=== PATIENT | female | born 1970 | race Caucasian/White ===

== ENCOUNTER 2017-10-20 21:35 | Inpatient (IN) | payer BC ==
[~2017-10-20] VITALS: Ht 162.6 cm; Wt 129.3 kg
[2017-10-20 22:14] LABS: BASOPHILS % (AUTO) 0.2 % (0-1); EOSINOPHILS % (AUTO) 0.3 % (0-6); HEMATOCRIT 39.8 % (35.0-45.0); HEMOGLOBIN 13.3 g/dl (12.0-16.0); LYMPHOCYTES # (AUTO) 0.8 X10'3 (1.1-4.8); LYMPHOCYTES % (AUTO) 12.8 % (21-51); MEAN CORPUSCULAR HEMOGLOBIN 26.5 PG (27.0-31.0); MEAN CORPUSCULAR HGB CONC 33.5 % (33.0-36.5); MEAN CORPUSCULAR VOLUME 79.2 FL (78-98); MONOCYTES # (AUTO) 0.1 X10'3 (0-0.9); MONOCYTES % (AUTO) 0.8 % (2-12); NEUTROPHILS # (AUTO) 5.2 X10'3 (1.8-7.7); NEUTROPHILS % (AUTO) 85.9 % (42-75); PLATELET COUNT 481 X10'3 (140-440); RED BLOOD COUNT 5.03 X10'6 (4.20-5.60); RED CELL DISTRIBUTION WIDTH 16.5 % (11.5-14.5); WHITE BLOOD COUNT 6.1 X10'3 (4.5-11.0)
[2017-10-20 22:25] LABS: INR 1.2 INR; PROTHROMBIN TIME 12.4 SECONDS (9.0-12.0)
[2017-10-20 22:29] LABS: ALANINE AMINOTRANSFERASE 21 U/L (12-78); ALBUMIN 2.8 G/DL (3.4-5.0); ALBUMIN/GLOBULIN RATIO 0.6 (1.1-1.5); ALKALINE PHOSPHATASE 112 IU/L (46-116); ANION GAP 17 (8-16); ASPARTATE AMINO TRANSFERASE 13 U/L (10-37); BILIRUBIN,TOTAL 0.6 MG/DL (0.1-1.0); BLOOD UREA NITROGEN 12 MG/DL (7-18); BUN/CREATININE RATIO 7.9 (6.6-38.0); CALCIUM 9.7 MG/DL (8.5-10.1); CHLORIDE 99 MMOL/L (99-107); CREATININE 1.52 MG/DL (0.40-0.90); GLUCOSE 146 MG/DL (70-104); POTASSIUM 3.4 MMOL/L (3.5-5.1); SODIUM 138 MMOL/L (135-145); TOTAL CARBON DIOXIDE 21.8 MMOL/L (24-32); TOTAL PROTEIN 7.7 G/DL (6.4-8.2); eGFR 37 ML/MIN
[2017-10-20 22:32] LABS: TOTAL CELLS COUNTED 100
[2017-10-20 22:34] LABS: PLATELET ESTIMATE INCREASED
[2017-10-20 22:35] LABS: ANISOCYTOSIS 1+
[2017-10-20] MEDS ORDERED: morphine 4 MG/ML inj SYRINge IV ONE (22:35)
[2017-10-20] MEDS ORDERED: normal saline 1000ML IV soln IVB ONE (22:35)
[2017-10-20] MEDS ORDERED: ondansetron/PF 4mg/2ml inj IV ONE (22:35)
[2017-10-20] MEDS ORDERED: LORazepam 2 mg/ml vial IV ONE (22:35)
[2017-10-20 22:36] LABS: TOXIC GRANULATION 1+; TOXIC VACUOLATION 1+
[2017-10-20 22:48] LABS: LIPASE 168 U/L (73-393)
[2017-10-21] VITALS (18 sets, daily range): BP systolic 98–121; BP diastolic 48–82
[2017-10-21] MEDS ORDERED: normal saline 1000ML IV soln IVB ONE ×3 (01:45→05:55)
[2017-10-21] MEDS: diatr meglu/diatrizoate 30ml oral sol.-(3 dose) bottle PO SCH ×3 (02:10→03:39)
[2017-10-21] MEDS ORDERED: morphine 4 MG/ML inj SYRINge IV ONE (02:40)
[2017-10-21] MEDS ORDERED: iohexol 300mg/ml 100ml inj. ONE (02:47)
[2017-10-21] MEDS ORDERED: piperacillin/tazo 3.375gm/50ml 50 ML IV ONE ×2 (02:50→09:10)
[2017-10-21 04:45] LABS: CLARITY,URINE CLOUDY (Clear); COLOR,URINE YELLOW (Yellow); GLUCOSE, URINE NEGATIVE (Neg); KETONES,URINE 15 mg/dl (Neg); LEUKOCYTE ESTERASE ,URINE NEGATIVE (Neg); NITRITES, URINE NEGATIVE (Neg); OCCULT BLOOD,URINE TRACE-INTACT (Neg); PH,URINE 5.5 (4.8-8.0); PROTEIN,URINE >=300 mg/dl (Neg)
[2017-10-21 04:46] LABS: UA COLLECTION TYPE FOLEY CATH
[2017-10-21 04:55] LABS: WBC,URINE 0-4 /HPF (0-4)
[2017-10-21 04:56] LABS: BACTERIA,URINE 1+ /HPF (Neg); MUCUS STRANDS MANY /LPF (Neg); SQUAMOUS EPITHELIAL CELL,UR FEW /LPF (FEW)
[2017-10-21 04:57] LABS: AMORPHOUS URATES 3+
[2017-10-21] MEDS ORDERED: LEVO125T PO (05:58)
[2017-10-21] MEDS ORDERED: normal saline 1000ML IV soln IV ONE (06:20)
[2017-10-21 06:47] LABS: BASOPHILS % (AUTO) 0 % (0-1); EOSINOPHILS % (AUTO) 0 % (0-6); HEMATOCRIT 34.6 % (35.0-45.0); HEMOGLOBIN 11.6 g/dl (12.0-16.0); LYMPHOCYTES # (AUTO) 0.5 X10'3 (1.1-4.8); LYMPHOCYTES % (AUTO) 5.6 % (21-51); MEAN CORPUSCULAR HEMOGLOBIN 26.7 PG (27.0-31.0); MEAN CORPUSCULAR HGB CONC 33.4 % (33.0-36.5); MEAN PLATELET VOLUME 7.3 FL (7.4-10.4); MONOCYTES # (AUTO) 0.5 X10'3 (0-0.9); NEUTROPHILS # (AUTO) 7.2 X10'3 (1.8-7.7); NEUTROPHILS % (AUTO) 88.4 % (42-75); PLATELET COUNT 433 X10'3 (140-440); RED BLOOD COUNT 4.32 X10'6 (4.20-5.60); RED CELL DISTRIBUTION WIDTH 16.6 % (11.5-14.5); WHITE BLOOD COUNT 8.2 X10'3 (4.5-11.0)
[2017-10-21 07:01] LABS: ALANINE AMINOTRANSFERASE 15 U/L (12-78); ALBUMIN/GLOBULIN RATIO 0.5 (1.1-1.5); ALKALINE PHOSPHATASE 68 IU/L (46-116); ANION GAP 13 (8-16); ASPARTATE AMINO TRANSFERASE 12 U/L (10-37); BILIRUBIN,TOTAL 0.6 MG/DL (0.1-1.0); BLOOD UREA NITROGEN 14 MG/DL (7-18); BUN/CREATININE RATIO 9.7 (6.6-38.0); CALCIUM 7.6 MG/DL (8.5-10.1); CHLORIDE 107 MMOL/L (99-107); CREATININE 1.44 MG/DL (0.40-0.90); GLUCOSE 120 MG/DL (70-104); MAGNESIUM 1.3 MG/DL (1.5-2.4); POTASSIUM 3.6 MMOL/L (3.5-5.1); SODIUM 141 MMOL/L (135-145); TOTAL CARBON DIOXIDE 20.8 MMOL/L (24-32); TOTAL PROTEIN 5.8 G/DL (6.4-8.2); eGFR 39 ML/MIN
[2017-10-21] MEDS ORDERED: magnesium 2GM in 50ml NS 50 ML IV ONE (07:05)
[2017-10-21 07:08] LABS: ANISOCYTOSIS 1+; BANDS% (MANUAL) 34 % (0-10); LYMPHOCYTES % (MANUAL) 7 % (21-51); METAMYLEOCYTES% (MANUAL) 4 % (0-0); MONOCYTES % (MANUAL) 5 % (2-12); NEUTROPHILS % (MANUAL) 50 % (42-75); PLATELET ESTIMATE NORMAL; TOTAL CELLS COUNTED 100
[2017-10-21 07:09] LABS: TOXIC VACUOLATION 1+
[2017-10-21] MEDS ORDERED: gentamicin 40 MG/1 ML inj ONE ×2 (07:11→10:07)
[2017-10-21] MEDS ORDERED: clindamycin phosphate 150mg/ml inj. ONE ×2 (07:11→10:07)
[2017-10-21 07:40] LABS: ABG BASE EXCESS -8.2 mmol/L (-2.0-3.0); ABG HCO3 16.6 mmol/L (22.0-26.0); ABG OXYGEN SATURATION 96.3 % (95-98); ABG PCO2 (T) 34.4 mmHg (32.0-45.0); ABG PH (T) 7.309 (7.350-7.450); ABG PO2 (T) 101.1 mmHg (83-108); ALLEN'S TEST Positive; FCOHb 0.3 % (0.5-1.5); FLOW 4 L/min; FMetHb 0.2 % (0.3-1.12); FO2Hb 95.8 % (94-100); PATIENT TEMPERATURE 38.7; TOTAL HEMOGLOBIN 12.8 G/dl (12.0-16.0)
[2017-10-21] MEDS ORDERED: midazolam 2 mg/2 ml injection ONE (08:06)
[2017-10-21] MEDS ORDERED: propofol inj 20 ML IV ONE (08:07)
[2017-10-21] MEDS ORDERED: LIDOcaine 2% (20mg/ml) 5ml vial ONE (08:07)
[2017-10-21] MEDS ORDERED: rocuronium 10mg/ml inj IV ONE (08:07)
[2017-10-21] MEDS ORDERED: fentaNYL /PF 50mcg/ml 5ml ampule ONE (08:07)
[2017-10-21] MEDS ORDERED: sevoflurane 250ml liquid IH ONE (08:15)
[2017-10-21] MEDS ORDERED: ondansetron/PF 4mg/2ml inj ONE (09:25)
[2017-10-21] MEDS ORDERED: dexamethasone sod phosphate 4mg/ml inj. ONE ×2 (09:25→10:00)
[2017-10-21] MEDS ORDERED: ketorolac trometh. 30mg/ml inj. ONE (10:00)
[2017-10-21] MEDS ORDERED: BUPIVAcaine/PF 2.5 mg/ml (0.25%) 30ml vial ONE ×2 (10:00)
[2017-10-21] MEDS ORDERED: acetaminophen 1,000mg/100ml IV 100 ML IV ONE (10:03)
[2017-10-21] MEDS ORDERED: glycopyrrolate 0.2mg/ml inj ONE (10:44)
[2017-10-21] MEDS ORDERED: neostigmine methylsulfate 1 MG/ML 10ml vial ONE (10:44)
[2017-10-21] MEDS ORDERED: CADD PCA waste documentation MC PRN (10:55)
[2017-10-21] MEDS ORDERED: ondansetron/PF 4mg/2ml inj IV PRN ×2 (10:55→11:25)
[2017-10-21] MEDS ORDERED: naloxone 0.4 mg/ml inj IV PRN (10:55)
[2017-10-21] MEDS: HYDROmorphone/NS 1 mg/ml CADD 50 ML IV SCH ×8 (11:00→23:00)
[2017-10-21] MEDS ORDERED: fentaNYL/PF 50MCG/1 ML 2ML syringe ONE (11:04)
[2017-10-21] MEDS ORDERED: ringers solution, lacted 1,000 ML IV SCH (11:24)
[2017-10-21] MEDS ORDERED: fentaNYL/PF 50MCG/1 ML 2ML syringe IV PRN (11:25)
[2017-10-21] MEDS ORDERED: HYDROmorphone inj. 0.5 MG/0.5 ML DISP.SYRIN IV PRN (11:25)
[2017-10-21] MEDS ORDERED: proCHLORperazine 10 MG/2 ml inj IV PRN (11:25)
[2017-10-21] MEDS: piperacillin/tazo 3.375gm/50ml 50 ML IV SCH ×2 (17:21→20:28)
[2017-10-21] MEDS: potassium CL 20mEq in D5-1/2NS 1,000 ML IV SCH (17:21)
[2017-10-22] VITALS: BP 127/65
[2017-10-22] MEDS: HYDROmorphone/NS 1 mg/ml CADD 50 ML IV SCH ×12 (01:00→23:00)
[2017-10-22] MEDS: piperacillin/tazo 3.375gm/50ml 50 ML IV SCH ×4 (02:45→20:16)
[2017-10-22 05:34] LABS: BASOPHILS % (AUTO) 0 % (0-1); EOSINOPHILS % (AUTO) 0.1 % (0-6); HEMATOCRIT 34.2 % (35.0-45.0); HEMOGLOBIN 11.4 g/dl (12.0-16.0); LYMPHOCYTES # (AUTO) 0.7 X10'3 (1.1-4.8); LYMPHOCYTES % (AUTO) 3.5 % (21-51); MEAN CORPUSCULAR HGB CONC 33.3 % (33.0-36.5); MEAN CORPUSCULAR VOLUME 81.1 FL (78-98); MEAN PLATELET VOLUME 7.9 FL (7.4-10.4); MONOCYTES # (AUTO) 0.6 X10'3 (0-0.9); MONOCYTES % (AUTO) 3.1 % (2-12); NEUTROPHILS # (AUTO) 17.4 X10'3 (1.8-7.7); NEUTROPHILS % (AUTO) 93.3 % (42-75); PLATELET COUNT 453 X10'3 (140-440); RED BLOOD COUNT 4.22 X10'6 (4.20-5.60); RED CELL DISTRIBUTION WIDTH 17.2 % (11.5-14.5); WHITE BLOOD COUNT 18.6 X10'3 (4.5-11.0)
[2017-10-22 05:41] LABS: ALBUMIN 1.7 G/DL (3.4-5.0); ANION GAP 12 (8-16); BLOOD UREA NITROGEN 18 MG/DL (7-18); CALCIUM 8.1 MG/DL (8.5-10.1); CHLORIDE 107 MMOL/L (99-107); CREATININE 1.06 MG/DL (0.40-0.90); GLUCOSE 154 MG/DL (70-104); POTASSIUM 4.5 MMOL/L (3.5-5.1); SODIUM 140 MMOL/L (135-145); TOTAL CARBON DIOXIDE 21.4 MMOL/L (24-32); eGFR 56 ML/MIN
[2017-10-22] MEDS: potassium CL 20mEq in D5-1/2NS 1,000 ML IV SCH ×5 (05:46→22:54)
[2017-10-22 07:25] LABS: ANISOCYTOSIS 1+; BANDS% (MANUAL) 30 % (0-10); LYMPHOCYTES % (MANUAL) 2 % (21-51); MONOCYTES % (MANUAL) 5 % (2-12); NEUTROPHILS % (MANUAL) 63 % (42-75); PLATELET ESTIMATE INCREASED; TOTAL CELLS COUNTED 100
[2017-10-22 07:26] LABS: BURR CELLS FEW; ROULEAUX 1+; TOXIC VACUOLATION 1+
[2017-10-22 08:00] VITALS: BP 125/72
[2017-10-22 12:17] VITALS: BP 124/71
[2017-10-22 19:00] VITALS: BP 128/67
[2017-10-22] MEDS: lactobacillus rhamnosus 10,000 MMU CELLS/CAPSULE PO SCH (20:00)
[2017-10-22 23:43] VITALS: BP 130/78
[2017-10-23] MEDS: HYDROmorphone/NS 1 mg/ml CADD 50 ML IV SCH ×12 (01:00→23:00)
[2017-10-23] MEDS: piperacillin/tazo 3.375gm/50ml 50 ML IV SCH ×4 (01:30→21:25)
[2017-10-23 05:30] LABS: BASOPHILS % (AUTO) 0.1 % (0-1); EOSINOPHILS # (AUTO) 0.3 X10'3 (0-0.9); EOSINOPHILS % (AUTO) 1.2 % (0-6); HEMATOCRIT 30.8 % (35.0-45.0); HEMOGLOBIN 10.2 g/dl (12.0-16.0); LYMPHOCYTES # (AUTO) 1.2 X10'3 (1.1-4.8); LYMPHOCYTES % (AUTO) 5.4 % (21-51); MEAN CORPUSCULAR HEMOGLOBIN 26.5 PG (27.0-31.0); MEAN CORPUSCULAR VOLUME 80.1 FL (78-98); MEAN PLATELET VOLUME 7.8 FL (7.4-10.4); MONOCYTES % (AUTO) 4.5 % (2-12); NEUTROPHILS # (AUTO) 19.8 X10'3 (1.8-7.7); NEUTROPHILS % (AUTO) 88.8 % (42-75); PLATELET COUNT 481 X10'3 (140-440); RED BLOOD COUNT 3.84 X10'6 (4.20-5.60); RED CELL DISTRIBUTION WIDTH 17.4 % (11.5-14.5); WHITE BLOOD COUNT 22.3 X10'3 (4.5-11.0)
[2017-10-23 05:43] LABS: ALBUMIN 1.5 G/DL (3.4-5.0); ANION GAP 7 (8-16); BLOOD UREA NITROGEN 13 MG/DL (7-18); BUN/CREATININE RATIO 19.7 (6.6-38.0); CALCIUM 8.2 MG/DL (8.5-10.1); CHLORIDE 107 MMOL/L (99-107); CREATININE 0.66 MG/DL (0.40-0.90); GLUCOSE 144 MG/DL (70-104); POTASSIUM 4.4 MMOL/L (3.5-5.1); SODIUM 139 MMOL/L (135-145); TOTAL CARBON DIOXIDE 24.8 MMOL/L (24-32); eGFR > 90 ML/MIN
[2017-10-23 06:11] LABS: ANISOCYTOSIS 1+; MICROCYTOSIS 1+; PLATELET ESTIMATE INCREASED; TARGET CELLS FEW
[2017-10-23 06:12] LABS: POLYCHROMASIA FEW; SCHISTOCYTES FEW
[2017-10-23] MEDS: enoxaparin 40mg/0.4ml syringe SUBCUT SCH (07:57)
[2017-10-23] MEDS: lactobacillus rhamnosus 10,000 MMU CELLS/CAPSULE PO SCH ×2 (08:00→20:00)
[2017-10-23] MEDS: potassium CL 20mEq in D5-1/2NS 1,000 ML IV SCH ×2 (08:02→17:28)
[2017-10-23 08:11] VITALS: BP 135/83
[2017-10-23 11:30] VITALS: BP 148/88
[2017-10-23 19:00] VITALS: BP 144/90
[2017-10-23] MEDS ORDERED: Dextrose 10%-water IV solution 1,000 ML IV PRN (20:00)
[2017-10-23 22:54] LABS: ALANINE AMINOTRANSFERASE 27 U/L (12-78); ALBUMIN 1.5 G/DL (3.4-5.0); ALBUMIN/GLOBULIN RATIO 0.3 (1.1-1.5); ALKALINE PHOSPHATASE 69 IU/L (46-116); ANION GAP 8 (8-16); ASPARTATE AMINO TRANSFERASE 31 U/L (10-37); BILIRUBIN,TOTAL 0.2 MG/DL (0.1-1.0); BLOOD UREA NITROGEN 12 MG/DL (7-18); BUN/CREATININE RATIO 19.4 (6.6-38.0); CALCIUM 8.3 MG/DL (8.5-10.1); CHLORIDE 106 MMOL/L (99-107); CREATININE 0.62 MG/DL (0.40-0.90); GLUCOSE 115 MG/DL (70-104); PREALBUMIN 9.5 MG/DL (19-36); SODIUM 140 MMOL/L (135-145); TOTAL CARBON DIOXIDE 26.3 MMOL/L (24-32); TOTAL PROTEIN 5.8 G/DL (6.4-8.2); TRIGLYCERIDES 90 MG/DL (20-135); eGFR > 90 ML/MIN
[2017-10-23 23:00] VITALS: BP 134/78
[2017-10-23 23:03] LABS: PHOSPHORUS 1.2 MG/DL (2.3-4.5)
[2017-10-23] MEDS: fat emulsion IV 100 ML, MVI, adult No.4 with vit. K 5 ML, Trace element-5 inj. 0.5 ML i... IV SCH ×4 (23:27)
[2017-10-24] MEDS: HYDROmorphone/NS 1 mg/ml CADD 50 ML IV SCH ×12 (01:00→22:40)
[2017-10-24] MEDS: piperacillin/tazo 3.375gm/50ml 50 ML IV SCH ×4 (01:30→20:03)
[2017-10-24] MEDS: potassium CL 20mEq in D5-1/2NS 1,000 ML IV SCH ×2 (01:30→10:53)
[2017-10-24] MEDS ORDERED: sodium phosphate inj. 30 MMOL in dextrose 5%-water 240 ML IV ONE (06:25)
[2017-10-24] MEDS: lactobacillus rhamnosus 10,000 MMU CELLS/CAPSULE PO SCH ×2 (07:23→20:00)
[2017-10-24] MEDS: enoxaparin 40mg/0.4ml syringe SUBCUT SCH (07:29)
[2017-10-24 07:45] VITALS: BP 129/83
[2017-10-24 08:05] LABS: BASOPHILS # (AUTO) 0.1 X10'3 (0-0.2); BASOPHILS % (AUTO) 0.3 % (0-1); EOSINOPHILS # (AUTO) 0.2 X10'3 (0-0.9); EOSINOPHILS % (AUTO) 1.3 % (0-6); HEMATOCRIT 29.3 % (35.0-45.0); HEMOGLOBIN 9.9 g/dl (12.0-16.0); LYMPHOCYTES # (AUTO) 1.8 X10'3 (1.1-4.8); LYMPHOCYTES % (AUTO) 9.6 % (21-51); MEAN CORPUSCULAR HEMOGLOBIN 26.7 PG (27.0-31.0); MEAN CORPUSCULAR HGB CONC 33.6 % (33.0-36.5); MEAN CORPUSCULAR VOLUME 79.4 FL (78-98); MEAN PLATELET VOLUME 7.9 FL (7.4-10.4); MONOCYTES # (AUTO) 0.3 X10'3 (0-0.9); MONOCYTES % (AUTO) 1.7 % (2-12); NEUTROPHILS # (AUTO) 16.7 X10'3 (1.8-7.7); NEUTROPHILS % (AUTO) 87.1 % (42-75); PLATELET COUNT 476 X10'3 (140-440); RED BLOOD COUNT 3.69 X10'6 (4.20-5.60); RED CELL DISTRIBUTION WIDTH 15.8 % (11.5-14.5); WHITE BLOOD COUNT 19.1 X10'3 (4.5-11.0)
[2017-10-24 08:23] LABS: ALANINE AMINOTRANSFERASE 24 U/L (12-78); ALBUMIN 1.4 G/DL (3.4-5.0); ALBUMIN/GLOBULIN RATIO 0.3 (1.1-1.5); ALKALINE PHOSPHATASE 64 IU/L (46-116); ANION GAP 7 (8-16); ASPARTATE AMINO TRANSFERASE 27 U/L (10-37); BILIRUBIN,TOTAL 0.2 MG/DL (0.1-1.0); BLOOD UREA NITROGEN 11 MG/DL (7-18); BUN/CREATININE RATIO 18.3 (6.6-38.0); CALCIUM 8.1 MG/DL (8.5-10.1); CHLORIDE 106 MMOL/L (99-107); GLUCOSE 124 MG/DL (70-104); MAGNESIUM 1.8 MG/DL (1.5-2.4); POTASSIUM 3.9 MMOL/L (3.5-5.1); SODIUM 139 MMOL/L (135-145); TOTAL CARBON DIOXIDE 26.4 MMOL/L (24-32); TOTAL PROTEIN 5.7 G/DL (6.4-8.2); eGFR > 90 ML/MIN
[2017-10-24 08:28] LABS: PHOSPHORUS 1.2 MG/DL (2.3-4.5); TOTAL CELLS COUNTED 100
[2017-10-24 08:29] LABS: ANISOCYTOSIS 1+; HYPOCHROMASIA 1+; MICROCYTOSIS 1+; PLATELET ESTIMATE INCREASED; POLYCHROMASIA 1+; TOXIC GRANULATION 2+
[2017-10-24] MEDS: pantoprazole 40 MG vial IV SCH ×2 (10:53→20:05)
[2017-10-24 12:52] VITALS: BP 148/77
[2017-10-24] MEDS: fat emulsion IV 100 ML, MVI, adult No.4 with vit. K 5 ML, Trace element-5 inj. 0.5 ML i... IV SCH ×4 (17:57)
[2017-10-24 20:00] VITALS: BP 164/92
[2017-10-24 23:30] VITALS: BP 164/92
[2017-10-25] MEDS: HYDROmorphone/NS 1 mg/ml CADD 50 ML IV SCH ×12 (01:00→23:00)
[2017-10-25] MEDS: piperacillin/tazo 3.375gm/50ml 50 ML IV SCH ×4 (01:48→21:35)
[2017-10-25] MEDS: fat emulsion IV 100 ML, MVI, adult No.4 with vit. K 5 ML, Trace element-5 inj. 0.5 ML i... IV SCH ×12 (04:08→23:43)
[2017-10-25 06:47] LABS: BASOPHILS % (AUTO) 0.2 % (0-1); EOSINOPHILS # (AUTO) 0.4 X10'3 (0-0.9); EOSINOPHILS % (AUTO) 1.9 % (0-6); HEMATOCRIT 31.9 % (35.0-45.0); HEMOGLOBIN 10.4 g/dl (12.0-16.0); LYMPHOCYTES % (AUTO) 9.2 % (21-51); MEAN CORPUSCULAR HEMOGLOBIN 26.4 PG (27.0-31.0); MEAN CORPUSCULAR HGB CONC 32.7 % (33.0-36.5); MEAN CORPUSCULAR VOLUME 80.6 FL (78-98); MEAN PLATELET VOLUME 7.5 FL (7.4-10.4); MONOCYTES # (AUTO) 1.2 X10'3 (0-0.9); MONOCYTES % (AUTO) 5.3 % (2-12); NEUTROPHILS # (AUTO) 18.3 X10'3 (1.8-7.7); NEUTROPHILS % (AUTO) 83.4 % (42-75); PLATELET COUNT 570 X10'3 (140-440); RED BLOOD COUNT 3.96 X10'6 (4.20-5.60); RED CELL DISTRIBUTION WIDTH 16.7 % (11.5-14.5); WHITE BLOOD COUNT 21.9 X10'3 (4.5-11.0)
[2017-10-25 07:13] VITALS: BP 149/81
[2017-10-25 07:13] LABS: ANISOCYTOSIS 1+; PLATELET ESTIMATE INCREASED; TOTAL CELLS COUNTED 100
[2017-10-25 07:14] LABS: MICROCYTOSIS 1+; TOXIC GRANULATION 1+
[2017-10-25 07:45] LABS: ALANINE AMINOTRANSFERASE 23 U/L (12-78); ALBUMIN 1.5 G/DL (3.4-5.0); ALBUMIN/GLOBULIN RATIO 0.3 (1.1-1.5); ALKALINE PHOSPHATASE 66 IU/L (46-116); ANION GAP 8 (8-16); ASPARTATE AMINO TRANSFERASE 23 U/L (10-37); BILIRUBIN,TOTAL 0.2 MG/DL (0.1-1.0); BLOOD UREA NITROGEN 12 MG/DL (7-18); BUN/CREATININE RATIO 17.6 (6.6-38.0); CALCIUM 8.3 MG/DL (8.5-10.1); CHLORIDE 103 MMOL/L (99-107); CREATININE 0.68 MG/DL (0.40-0.90); GLUCOSE 122 MG/DL (70-104); MAGNESIUM 1.6 MG/DL (1.5-2.4); PHOSPHORUS 1.9 MG/DL (2.3-4.5); POTASSIUM 3.4 MMOL/L (3.5-5.1); SODIUM 138 MMOL/L (135-145); TOTAL CARBON DIOXIDE 26.6 MMOL/L (24-32); TOTAL PROTEIN 5.9 G/DL (6.4-8.2); eGFR > 90 ML/MIN
[2017-10-25] MEDS: lactobacillus rhamnosus 10,000 MMU CELLS/CAPSULE PO SCH ×2 (08:00→20:00)
[2017-10-25] MEDS: potassium CL 20mEq in D5-1/2NS 1,000 ML IV SCH (08:01)
[2017-10-25] MEDS: pantoprazole 40 MG vial IV SCH ×2 (08:58→21:34)
[2017-10-25] MEDS: enoxaparin 40mg/0.4ml syringe SUBCUT SCH (08:59)
[2017-10-25 11:46] VITALS: BP 155/85
[2017-10-25] MEDS ORDERED: [UNRECOGNIZED DRUG - OTHER] IV ONE ×2 (15:35)
[2017-10-25] MEDS: normal saline 500ml IV soln 500 ML IV SCH (16:18)
[2017-10-25 18:45] VITALS: BP 142/80
[2017-10-26] VITALS: BP 130/62
[2017-10-26] MEDS: HYDROmorphone/NS 1 mg/ml CADD 50 ML IV SCH ×12 (01:00→22:40)
[2017-10-26] MEDS: piperacillin/tazo 3.375gm/50ml 50 ML IV SCH ×4 (02:22→20:08)
[2017-10-26 05:51] LABS: BASOPHILS % (AUTO) 0 % (0-1); EOSINOPHILS # (AUTO) 0.8 X10'3 (0-0.9); EOSINOPHILS % (AUTO) 2.9 % (0-6); HEMATOCRIT 32.4 % (35.0-45.0); HEMOGLOBIN 10.8 g/dl (12.0-16.0); LYMPHOCYTES % (AUTO) 7.6 % (21-51); MEAN CORPUSCULAR HEMOGLOBIN 26.6 PG (27.0-31.0); MEAN CORPUSCULAR HGB CONC 33.3 % (33.0-36.5); MEAN PLATELET VOLUME 7.6 FL (7.4-10.4); MONOCYTES # (AUTO) 1.4 X10'3 (0-0.9); MONOCYTES % (AUTO) 5.2 % (2-12); NEUTROPHILS # (AUTO) 22.2 X10'3 (1.8-7.7); NEUTROPHILS % (AUTO) 84.3 % (42-75); PLATELET COUNT 585 X10'3 (140-440); RED BLOOD COUNT 4.05 X10'6 (4.20-5.60); RED CELL DISTRIBUTION WIDTH 17.4 % (11.5-14.5)
[2017-10-26 06:08] LABS: WHITE BLOOD COUNT 26.3 X10'3 (4.5-11.0)
[2017-10-26 06:19] LABS: ALANINE AMINOTRANSFERASE 18 U/L (12-78); ALBUMIN 1.4 G/DL (3.4-5.0); ALBUMIN/GLOBULIN RATIO 0.3 (1.1-1.5); ALKALINE PHOSPHATASE 71 IU/L (46-116); ANION GAP 11 (8-16); ASPARTATE AMINO TRANSFERASE 20 U/L (10-37); BILIRUBIN,TOTAL 0.2 MG/DL (0.1-1.0); BLOOD UREA NITROGEN 17 MG/DL (7-18); BUN/CREATININE RATIO 25.8 (6.6-38.0); CALCIUM 8.2 MG/DL (8.5-10.1); CHLORIDE 99 MMOL/L (99-107); CREATININE 0.66 MG/DL (0.40-0.90); GLUCOSE 103 MG/DL (70-104); MAGNESIUM 1.8 MG/DL (1.5-2.4); POTASSIUM 3.8 MMOL/L (3.5-5.1); PREALBUMIN 11.2 MG/DL (19-36); SODIUM 136 MMOL/L (135-145); TOTAL PROTEIN 6.1 G/DL (6.4-8.2); TRIGLYCERIDES 87 MG/DL (20-135); eGFR > 90 ML/MIN
[2017-10-26 07:39] LABS: BANDS% (MANUAL) 2 % (0-10); NEUTROPHILS % (MANUAL) 85 % (42-75); TOTAL CELLS COUNTED 100
[2017-10-26 07:40] LABS: ANISOCYTOSIS 1+; EOSINOPHILS % (MANUAL) 4 % (0-6); LYMPHOCYTES % (MANUAL) 6 % (21-51); METAMYLEOCYTES% (MANUAL) 1 % (0-0); MONOCYTES % (MANUAL) 2 % (2-12); PLATELET ESTIMATE INCREASED
[2017-10-26] MEDS: enoxaparin 40mg/0.4ml syringe SUBCUT SCH (08:00)
[2017-10-26] MEDS: lactobacillus rhamnosus 10,000 MMU CELLS/CAPSULE PO SCH ×2 (08:00→20:00)
[2017-10-26] MEDS: fat emulsion IV 100 ML, MVI, adult No.4 with vit. K 5 ML, Trace element-5 inj. 0.5 ML i... IV SCH ×8 (09:19→18:56)
[2017-10-26] MEDS: pantoprazole 40 MG vial IV SCH ×2 (09:20→20:11)
[2017-10-26] MEDS: methylnaltrexone br 12mg/0.6ml inj***SubQ only SQ SCH (09:20)
[2017-10-26 09:43] VITALS: BP 146/74
[2017-10-26] MEDS: diatr meglu/diatrizoate 30ml oral sol.-(3 dose) bottle PO SCH ×3 (09:59→14:38)
[2017-10-26 12:26] VITALS: BP 147/87
[2017-10-26] MEDS: linezolid 600mg/300ml PREMIX 300 ML IV SCH ×2 (13:21→21:05)
[2017-10-26] MEDS ORDERED: iohexol 300mg/ml 100ml inj. ONE (14:15)
[2017-10-26] MEDS: normal saline 500ml IV soln 500 ML IV SCH (17:03)
[2017-10-26 20:00] VITALS: BP 129/75
[2017-10-27] VITALS (12 sets, daily range): BP systolic 120–152; BP diastolic 66–92
[2017-10-27] MEDS: HYDROmorphone/NS 1 mg/ml CADD 50 ML IV SCH ×12 (01:00→23:00)
[2017-10-27] MEDS: piperacillin/tazo 3.375gm/50ml 50 ML IV SCH ×4 (01:58→20:51)
[2017-10-27] MEDS: fat emulsion IV 100 ML, MVI, adult No.4 with vit. K 5 ML, Trace element-5 inj. 0.5 ML i... IV SCH ×12 (03:55→23:20)
[2017-10-27 06:53] LABS: ALANINE AMINOTRANSFERASE 19 U/L (12-78); ALBUMIN 1.4 G/DL (3.4-5.0); ALBUMIN/GLOBULIN RATIO 0.3 (1.1-1.5); ALKALINE PHOSPHATASE 71 IU/L (46-116); ANION GAP 6 (8-16); ASPARTATE AMINO TRANSFERASE 18 U/L (10-37); BILIRUBIN,TOTAL 0.2 MG/DL (0.1-1.0); BLOOD UREA NITROGEN 16 MG/DL (7-18); BUN/CREATININE RATIO 25.4 (6.6-38.0); CALCIUM 8.2 MG/DL (8.5-10.1); CHLORIDE 100 MMOL/L (99-107); CREATININE 0.63 MG/DL (0.40-0.90); GLUCOSE 121 MG/DL (70-104); MAGNESIUM 1.9 MG/DL (1.5-2.4); PHOSPHORUS 3.4 MG/DL (2.3-4.5); POTASSIUM 3.7 MMOL/L (3.5-5.1); SODIUM 135 MMOL/L (135-145); TOTAL CARBON DIOXIDE 29.3 MMOL/L (24-32); TOTAL PROTEIN 6.2 G/DL (6.4-8.2); eGFR > 90 ML/MIN
[2017-10-27] MEDS: lactobacillus rhamnosus 10,000 MMU CELLS/CAPSULE PO SCH ×2 (08:37→20:00)
[2017-10-27] MEDS: pantoprazole 40 MG vial IV SCH ×2 (08:38→20:47)
[2017-10-27] MEDS: linezolid 600mg/300ml PREMIX 300 ML IV SCH ×2 (08:40→22:22)
[2017-10-27] MEDS ORDERED: LIDOcaine 1%/PF (10mg/ml) 5ml vial ONE (12:56)
[2017-10-27] MEDS: normal saline 500ml IV soln 500 ML IV SCH ×2 (17:32→21:08)
[2017-10-28] VITALS: BP 126/66
[2017-10-28] MEDS: HYDROmorphone/NS 1 mg/ml CADD 50 ML IV SCH ×8 (01:00→15:00)
[2017-10-28] MEDS: piperacillin/tazo 3.375gm/50ml 50 ML IV SCH ×3 (02:07→15:32)
[2017-10-28 06:52] LABS: BASOPHILS % (AUTO) 0 % (0-1); EOSINOPHILS # (AUTO) 0.7 X10'3 (0-0.9); EOSINOPHILS % (AUTO) 3.9 % (0-6); HEMOGLOBIN 10.1 g/dl (12.0-16.0); LYMPHOCYTES # (AUTO) 1.3 X10'3 (1.1-4.8); MEAN CORPUSCULAR HEMOGLOBIN 26.8 PG (27.0-31.0); MEAN CORPUSCULAR HGB CONC 33.7 % (33.0-36.5); MEAN CORPUSCULAR VOLUME 79.7 FL (78-98); MEAN PLATELET VOLUME 7.6 FL (7.4-10.4); MONOCYTES # (AUTO) 1.4 X10'3 (0-0.9); MONOCYTES % (AUTO) 7.5 % (2-12); NEUTROPHILS # (AUTO) 15.5 X10'3 (1.8-7.7); NEUTROPHILS % (AUTO) 81.6 % (42-75); PLATELET COUNT 665 X10'3 (140-440); RED BLOOD COUNT 3.77 X10'6 (4.20-5.60)
[2017-10-28 07:07] VITALS: BP 123/70
[2017-10-28 07:09] LABS: ALANINE AMINOTRANSFERASE 15 U/L (12-78); ALBUMIN 1.3 G/DL (3.4-5.0); ALBUMIN/GLOBULIN RATIO 0.3 (1.1-1.5); ALKALINE PHOSPHATASE 74 IU/L (46-116); ANION GAP 7 (8-16); ASPARTATE AMINO TRANSFERASE 15 U/L (10-37); BILIRUBIN,TOTAL 0.2 MG/DL (0.1-1.0); BLOOD UREA NITROGEN 16 MG/DL (7-18); BUN/CREATININE RATIO 25.8 (6.6-38.0); CALCIUM 8.1 MG/DL (8.5-10.1); CHLORIDE 100 MMOL/L (99-107); CREATININE 0.62 MG/DL (0.40-0.90); GLUCOSE 115 MG/DL (70-104); PHOSPHORUS 3.7 MG/DL (2.3-4.5); SODIUM 135 MMOL/L (135-145); TOTAL PROTEIN 6.3 G/DL (6.4-8.2); eGFR > 90 ML/MIN
[2017-10-28 07:39] LABS: ANISOCYTOSIS 1+; PLATELET ESTIMATE INCREASED; TOTAL CELLS COUNTED 100
[2017-10-28] MEDS: lactobacillus rhamnosus 10,000 MMU CELLS/CAPSULE PO SCH (08:00)
[2017-10-28] MEDS: fat emulsion IV 100 ML, MVI, adult No.4 with vit. K 5 ML, Trace element-5 inj. 0.5 ML i... IV SCH ×4 (08:58)
[2017-10-28] MEDS: pantoprazole 40 MG vial IV SCH (09:00)
[2017-10-28] MEDS: methylnaltrexone br 12mg/0.6ml inj***SubQ only SQ SCH (09:01)
[2017-10-28] MEDS: enoxaparin 40mg/0.4ml syringe SUBCUT SCH (09:01)
[2017-10-28] MEDS ORDERED: fluconazole/NS 400mg/200ml bag 200 ML IV SCH (09:30)
[2017-10-28] MEDS: linezolid 600mg/300ml PREMIX 300 ML IV SCH (10:36)
[2017-10-28 11:00] VITALS: BP 131/71
== END 2017-10-28 17:25 | disposition short-term general hospital (02) | DRG 326 ==
LOC: ER 21:36 → PACU 10-21 08:13 → SUR 3N 10-21 12:53
PROVIDERS: ADMIT Surgery; ATTEND Surgery
PROC: BW211ZZ Computerized Tomography (CT Scan) of Abdomen and Pelvis using Low Osmolar Contrast (ICD-10-PCS; 2017-10-21)
PROC: 0DU607Z Supplement Stomach with Autologous Tissue Substitute, Open Approach (ICD-10-PCS; principal; 2017-10-21 08:15)
PROC: 02HV33Z Insertion of Infusion Device into Superior Vena Cava, Percutaneous Approach (ICD-10-PCS; 2017-10-23)
PROC: 4A02X4A Measurement of Cardiac Electrical Activity, Guidance, External Approach (ICD-10-PCS; 2017-10-23)
PROC: BW211ZZ Computerized Tomography (CT Scan) of Abdomen and Pelvis using Low Osmolar Contrast (ICD-10-PCS; 2017-10-26)
PROC: 0W9B30Z Drainage of Left Pleural Cavity with Drainage Device, Percutaneous Approach (ICD-10-PCS; 2017-10-27)
DX: K95.81 Infection due to other bariatric procedure (principal); A40.9 Streptococcal sepsis, unspecified; K65.8 Other peritonitis; Z68.42 Body mass index [BMI] 45.0-49.9, adult; E86.0 Dehydration; E66.9 Obesity, unspecified; N28.9 Disorder of kidney and ureter, unspecified; E03.9 Hypothyroidism, unspecified; Y83.2 Surgical operation with anastomosis, bypass or graft as the cause of abnormal reaction of the patient, or of later complication, without mention of misadventure at the time of the procedure; Z87.11 Personal history of peptic ulcer disease; Y92.89 Other specified places as the place of occurrence of the external cause
CPT/HCPCS: 32557; 36569; 99285; Z7506; 36415; 36600; 71045; 74176; 74177; 76937; 80048; 80053; 81001; 82803; 82948; 83605; 83690; 83735; 84100; 84134; 84145; 84156; 84166; 84478; 85018; 85025; 85610; 86885; 86900; 86901; 87040; 87070; 87075; 87076; 87077; 87186; 93005; 94760; A6223; A6251; A6253; A6257; A6266; A6449; A7000; C1758; C9113; J0131; J1100; J1170; J1450; J1580; J1650; J1885; J2001; J2020; J2060; J2250; J2270; J2405; J2543; J2704; J2710; J3010; J3475; J3490; J7030; J7060; J7120; Q9963; Q9967

== ENCOUNTER 2017-11-18 13:31 | Inpatient (IN) | payer BC ==
[~2017-11-18] VITALS: Ht 162.6 cm; Wt 116.2 kg
[~2017-11-18 13:31] MED LIST: LEVO125T PO
[2017-11-19] VITALS: BP 129/72
[2017-11-19] MEDS ORDERED: HYDROmorphone inj. 0.5 MG/0.5 ML DISP.SYRIN IV PRN (00:20)
[2017-11-19] MEDS ORDERED: Dextrose 10%-water IV solution 1,000 ML ONE (00:23)
[2017-11-19] MEDS: ondansetron/PF 4mg/2ml inj IV PRN ×3 (00:42→20:10)
[2017-11-19] MEDS: sodium chloride inj. 154 MEQ in Dextrose 10%-water IV solution 961.5 ML IV SCH ×2 (01:00→13:50)
[2017-11-19] MEDS ORDERED: HYDROmorphone 1 mg/ml syringe ONE ×3 (01:06→08:04)
[2017-11-19 07:00] VITALS: BP 112/69
[2017-11-19] MEDS ORDERED: meropenem inj 1 GM in normal saline 100ml IV soln 100 ML IV SCH (08:00)
[2017-11-19] MEDS ORDERED: linezolid 600mg/300ml PREMIX 300 ML IV SCH (08:00)
[2017-11-19] MEDS: heparin, porcine 5000 units/ml vial SQ SCH ×2 (08:09→20:40)
[2017-11-19] MEDS ORDERED: LEVOTHYROXINE IV (10:06)
[2017-11-19] MEDS ORDERED: ALTE2VIA (10:07)
[2017-11-19] MEDS ORDERED: FAT250EM13 IV (10:08)
[2017-11-19] MEDS ORDERED: ERTA1VIA2 IV (10:08)
[2017-11-19] MEDS ORDERED: DIFLUCAN IV (10:11)
[2017-11-19] MEDS ORDERED: LINE600T36 CORPAK (10:11)
[2017-11-19] MEDS ORDERED: PANTOPRAZOLE IV (10:14)
[2017-11-19] MEDS ORDERED: Dextrose 10%-water IV solution 1,000 ML IV PRN ×4 (11:29→12:57)
[2017-11-19] MEDS ORDERED: fat emulsion IV 181.82 ML, MVI, adult No.4 with vit. K 4.55 ML, Trace element-5 inj. 0.... IV SCH ×4 (11:29)
[2017-11-19] MEDS ORDERED: magnesium Cl slow-release 64mg tablet PO PRN (11:30)
[2017-11-19] MEDS: K, MAG and/or Phos replacement - Verify level? MC SCH (11:30)
[2017-11-19] MEDS ORDERED: sodium phosphate inj. 30 MMOL in dextrose 5%-water 250 ML IV PRN (11:30)
[2017-11-19] MEDS ORDERED: Neutra Phos packet PO PRN (11:30)
[2017-11-19] MEDS ORDERED: potassium Cl 20 mEq SR tablet PO PRN ×4 (11:30)
[2017-11-19] MEDS ORDERED: magnesium 2GM in 50ml NS 50 ML IV PRN (11:30)
[2017-11-19] MEDS ORDERED: potassium Cl 40MEQ/NS 500ml 500 ML IV PRN ×2 (11:30)
[2017-11-19] MEDS ORDERED: sodium phosphate inj. 15 MMOL in dextrose 5%-water 150 ML IV PRN (11:30)
[2017-11-19] MEDS ORDERED: magnesium 4gm in 100ml NS 100 ML IV PRN (11:30)
[2017-11-19 12:00] VITALS: BP 119/73
[2017-11-19] MEDS: HYDROmorphone 1 mg/ml syringe IV PRN ×3 (12:07→20:40)
[2017-11-19 12:26] LABS: ALANINE AMINOTRANSFERASE 60 U/L (12-78); ALBUMIN 2.5 G/DL (3.4-5.0); ALBUMIN/GLOBULIN RATIO 0.4 (1.1-1.5); ALKALINE PHOSPHATASE 149 IU/L (46-116); ANION GAP 9 (8-16); ASPARTATE AMINO TRANSFERASE 59 U/L (10-37); BILIRUBIN,TOTAL 0.2 MG/DL (0.1-1.0); BLOOD UREA NITROGEN 12 MG/DL (7-18); BUN/CREATININE RATIO 16.7 (6.6-38.0); CALCIUM 9.6 MG/DL (8.5-10.1); CHLORIDE 101 MMOL/L (99-107); CREATININE 0.72 MG/DL (0.40-0.90); GLUCOSE 106 MG/DL (70-104); MAGNESIUM 1.8 MG/DL (1.5-2.4); PREALBUMIN 30.3 MG/DL (19-36); SODIUM 137 MMOL/L (135-145); TOTAL CARBON DIOXIDE 27.4 MMOL/L (24-32); TOTAL PROTEIN 8.2 G/DL (6.4-8.2); TRIGLYCERIDES 103 MG/DL (20-135); eGFR 87 ML/MIN
[2017-11-19] MEDS: piperacillin/tazo 3.375gm/50ml 50 ML IV SCH ×2 (14:38→20:09)
[2017-11-19 18:00] VITALS: BP 124/73
[2017-11-19] MEDS ORDERED: [UNRECOGNIZED DRUG - REMARK] IV SCH (20:00)
[2017-11-19] MEDS ORDERED: tPA-cathflo 2 MG/2 ml IV flush IVF ONE (22:10)
[2017-11-20] VITALS: BP 120/71
[2017-11-20] MEDS: piperacillin/tazo 3.375gm/50ml 50 ML IV SCH ×4 (01:32→20:06)
[2017-11-20] MEDS: HYDROmorphone 1 mg/ml syringe IV PRN ×6 (01:35→22:22)
[2017-11-20] MEDS: ondansetron/PF 4mg/2ml inj IV PRN ×3 (02:08→17:16)
[2017-11-20] MEDS: sodium chloride inj. 154 MEQ in Dextrose 10%-water IV solution 961.5 ML IV SCH (05:01)
[2017-11-20 05:25] LABS: BASOPHILS # (AUTO) 0.1 X10'3 (0-0.2); BASOPHILS % (AUTO) 0.7 % (0-1); EOSINOPHILS # (AUTO) 0.5 X10'3 (0-0.9); EOSINOPHILS % (AUTO) 6.2 % (0-6); HEMOGLOBIN 10.7 g/dl (12.0-16.0); LYMPHOCYTES % (AUTO) 12.3 % (21-51); MEAN CORPUSCULAR HEMOGLOBIN 26.4 PG (27.0-31.0); MEAN CORPUSCULAR HGB CONC 33.4 % (33.0-36.5); MEAN CORPUSCULAR VOLUME 79.1 FL (78-98); MEAN PLATELET VOLUME 6.8 FL (7.4-10.4); MONOCYTES # (AUTO) 0.6 X10'3 (0-0.9); MONOCYTES % (AUTO) 7.9 % (2-12); NEUTROPHILS # (AUTO) 5.7 X10'3 (1.8-7.7); NEUTROPHILS % (AUTO) 72.9 % (42-75); PLATELET COUNT 689 X10'3 (140-440); RED BLOOD COUNT 4.04 X10'6 (4.20-5.60); RED CELL DISTRIBUTION WIDTH 17.2 % (11.5-14.5); WHITE BLOOD COUNT 7.8 X10'3 (4.5-11.0)
[2017-11-20 06:14] LABS: ALANINE AMINOTRANSFERASE 57 U/L (12-78); ALBUMIN 2.4 G/DL (3.4-5.0); ALBUMIN/GLOBULIN RATIO 0.4 (1.1-1.5); ALKALINE PHOSPHATASE 158 IU/L (46-116); ANION GAP 12 (8-16); ASPARTATE AMINO TRANSFERASE 54 U/L (10-37); BILIRUBIN,TOTAL 0.3 MG/DL (0.1-1.0); BLOOD UREA NITROGEN 11 MG/DL (7-18); BUN/CREATININE RATIO 11.7 (6.6-38.0); CALCIUM 9.5 MG/DL (8.5-10.1); CHLORIDE 101 MMOL/L (99-107); CREATININE 0.94 MG/DL (0.40-0.90); GLUCOSE 102 MG/DL (70-104); MAGNESIUM 1.8 MG/DL (1.5-2.4); PHOSPHORUS 5.7 MG/DL (2.3-4.5); SODIUM 139 MMOL/L (135-145); TOTAL CARBON DIOXIDE 26.4 MMOL/L (24-32); TOTAL PROTEIN 7.9 G/DL (6.4-8.2); eGFR 64 ML/MIN
[2017-11-20 07:41] VITALS: BP 114/63
[2017-11-20] MEDS: K, MAG and/or Phos replacement - Verify level? MC SCH (08:00)
[2017-11-20] MEDS: K and/or MAG REPLACEMENT MC SCH (08:00)
[2017-11-20] MEDS: heparin, porcine 5000 units/ml vial SQ SCH ×2 (09:27→20:07)
[2017-11-20 12:11] VITALS: BP 117/76
[2017-11-20] MEDS: Dextrose 10%-water IV solution 1,000 ML IV PRN (17:36)
[2017-11-20 18:00] VITALS: BP 115/76
[2017-11-20] MEDS: [UNRECOGNIZED DRUG - REMARK] IV SCH (18:55)
[2017-11-21] VITALS: BP 106/63
[2017-11-21] MEDS: piperacillin/tazo 3.375gm/50ml 50 ML IV SCH ×4 (02:47→19:25)
[2017-11-21] MEDS: HYDROmorphone 1 mg/ml syringe IV PRN ×5 (02:58→23:39)
[2017-11-21] MEDS: ondansetron/PF 4mg/2ml inj IV PRN ×3 (02:58→19:25)
[2017-11-21 05:48] LABS: BASOPHILS % (AUTO) 0.4 % (0-1); EOSINOPHILS # (AUTO) 0.4 X10'3 (0-0.9); EOSINOPHILS % (AUTO) 6.1 % (0-6); LYMPHOCYTES # (AUTO) 1.1 X10'3 (1.1-4.8); LYMPHOCYTES % (AUTO) 18.9 % (21-51); MEAN CORPUSCULAR HEMOGLOBIN 26.4 PG (27.0-31.0); MEAN CORPUSCULAR HGB CONC 33.4 % (33.0-36.5); MEAN CORPUSCULAR VOLUME 78.9 FL (78-98); MEAN PLATELET VOLUME 6.6 FL (7.4-10.4); MONOCYTES # (AUTO) 0.6 X10'3 (0-0.9); MONOCYTES % (AUTO) 10.7 % (2-12); NEUTROPHILS # (AUTO) 3.9 X10'3 (1.8-7.7); NEUTROPHILS % (AUTO) 63.9 % (42-75); PLATELET COUNT 646 X10'3 (140-440); RED BLOOD COUNT 4.19 X10'6 (4.20-5.60); RED CELL DISTRIBUTION WIDTH 17.5 % (11.5-14.5)
[2017-11-21 06:19] LABS: ALANINE AMINOTRANSFERASE 55 U/L (12-78); ALBUMIN 2.5 G/DL (3.4-5.0); ALBUMIN/GLOBULIN RATIO 0.5 (1.1-1.5); ALKALINE PHOSPHATASE 157 IU/L (46-116); ANION GAP 9 (8-16); ASPARTATE AMINO TRANSFERASE 40 U/L (10-37); BILIRUBIN,TOTAL 0.3 MG/DL (0.1-1.0); BLOOD UREA NITROGEN 20 MG/DL (7-18); BUN/CREATININE RATIO 23.8 (6.6-38.0); CALCIUM 9.5 MG/DL (8.5-10.1); CHLORIDE 102 MMOL/L (99-107); CREATININE 0.84 MG/DL (0.40-0.90); GLUCOSE 118 MG/DL (70-104); PHOSPHORUS 4.7 MG/DL (2.3-4.5); POTASSIUM 4.5 MMOL/L (3.5-5.1); SODIUM 138 MMOL/L (135-145); TOTAL CARBON DIOXIDE 27.5 MMOL/L (24-32); TOTAL PROTEIN 7.9 G/DL (6.4-8.2); eGFR 73 ML/MIN
[2017-11-21] MEDS: K and/or MAG REPLACEMENT MC SCH (06:54)
[2017-11-21] MEDS: K, MAG and/or Phos replacement - Verify level? MC SCH (06:55)
[2017-11-21 07:22] VITALS: BP 123/65
[2017-11-21] MEDS: heparin, porcine 5000 units/ml vial SQ SCH ×2 (09:25→19:25)
[2017-11-21 11:00] VITALS: BP 127/78
[2017-11-21] MEDS: [UNRECOGNIZED DRUG - REMARK] IV SCH (12:41)
[2017-11-21 18:00] VITALS: BP 108/64
[2017-11-21] MEDS: lactobacillus rhamnosus 10,000 MMU CELLS/CAPSULE PO SCH (19:25)
[2017-11-22] VITALS: BP 114/65
[2017-11-22] MEDS: piperacillin/tazo 3.375gm/50ml 50 ML IV SCH ×4 (02:13→20:51)
[2017-11-22] MEDS: ondansetron/PF 4mg/2ml inj IV PRN ×3 (04:22→19:01)
[2017-11-22] MEDS: HYDROmorphone 1 mg/ml syringe IV PRN ×6 (04:23→23:04)
[2017-11-22] MEDS: [UNRECOGNIZED DRUG - REMARK] IV SCH ×2 (04:40→20:51)
[2017-11-22 05:40] LABS: BASOPHILS % (AUTO) 0.6 % (0-1); EOSINOPHILS # (AUTO) 0.4 X10'3 (0-0.9); EOSINOPHILS % (AUTO) 6.3 % (0-6); HEMATOCRIT 32.2 % (35.0-45.0); HEMOGLOBIN 10.7 g/dl (12.0-16.0); LYMPHOCYTES # (AUTO) 1.6 X10'3 (1.1-4.8); LYMPHOCYTES % (AUTO) 22.1 % (21-51); MEAN CORPUSCULAR HEMOGLOBIN 26.5 PG (27.0-31.0); MEAN CORPUSCULAR HGB CONC 33.3 % (33.0-36.5); MEAN CORPUSCULAR VOLUME 79.6 FL (78-98); MEAN PLATELET VOLUME 7.1 FL (7.4-10.4); MONOCYTES # (AUTO) 0.7 X10'3 (0-0.9); MONOCYTES % (AUTO) 10.4 % (2-12); NEUTROPHILS # (AUTO) 4.3 X10'3 (1.8-7.7); NEUTROPHILS % (AUTO) 60.6 % (42-75); PLATELET COUNT 602 X10'3 (140-440); RED BLOOD COUNT 4.05 X10'6 (4.20-5.60); WHITE BLOOD COUNT 7.1 X10'3 (4.5-11.0)
[2017-11-22 06:05] LABS: ALANINE AMINOTRANSFERASE 42 U/L (12-78); ALBUMIN 2.5 G/DL (3.4-5.0); ALBUMIN/GLOBULIN RATIO 0.5 (1.1-1.5); ALKALINE PHOSPHATASE 145 IU/L (46-116); ANION GAP 8 (8-16); ASPARTATE AMINO TRANSFERASE 30 U/L (10-37); BILIRUBIN,TOTAL 0.3 MG/DL (0.1-1.0); BLOOD UREA NITROGEN 24 MG/DL (7-18); BUN/CREATININE RATIO 30.8 (6.6-38.0); CALCIUM 9.3 MG/DL (8.5-10.1); CHLORIDE 102 MMOL/L (99-107); CREATININE 0.78 MG/DL (0.40-0.90); GLUCOSE 109 MG/DL (70-104); MAGNESIUM 1.9 MG/DL (1.5-2.4); POTASSIUM 4.3 MMOL/L (3.5-5.1); SODIUM 137 MMOL/L (135-145); TOTAL CARBON DIOXIDE 26.7 MMOL/L (24-32); TOTAL PROTEIN 7.8 G/DL (6.4-8.2); eGFR 80 ML/MIN
[2017-11-22 07:26] VITALS: BP 113/62
[2017-11-22] MEDS: K, MAG and/or Phos replacement - Verify level? MC SCH (08:00)
[2017-11-22] MEDS: lactobacillus rhamnosus 10,000 MMU CELLS/CAPSULE PO SCH ×2 (08:00→20:51)
[2017-11-22] MEDS: K and/or MAG REPLACEMENT MC SCH (08:00)
[2017-11-22] MEDS: levoTHYROXINE sod inj. 100mcg/5 ml vial IV SCH (09:20)
[2017-11-22] MEDS: heparin, porcine 5000 units/ml vial SQ SCH ×2 (09:23→20:51)
[2017-11-22 11:45] VITALS: BP 116/75
[2017-11-22 20:00] VITALS: BP 110/71
[2017-11-23] VITALS: BP 111/64
[2017-11-23] MEDS: piperacillin/tazo 3.375gm/50ml 50 ML IV SCH ×4 (02:16→19:58)
[2017-11-23] MEDS: HYDROmorphone 1 mg/ml syringe IV PRN ×5 (03:14→21:14)
[2017-11-23 05:18] LABS: BASOPHILS % (AUTO) 0.5 % (0-1); EOSINOPHILS # (AUTO) 0.5 X10'3 (0-0.9); EOSINOPHILS % (AUTO) 6.8 % (0-6); HEMATOCRIT 32.3 % (35.0-45.0); HEMOGLOBIN 10.8 g/dl (12.0-16.0); LYMPHOCYTES # (AUTO) 1.4 X10'3 (1.1-4.8); LYMPHOCYTES % (AUTO) 19.7 % (21-51); MEAN CORPUSCULAR HEMOGLOBIN 26.5 PG (27.0-31.0); MEAN CORPUSCULAR HGB CONC 33.3 % (33.0-36.5); MEAN CORPUSCULAR VOLUME 79.5 FL (78-98); MEAN PLATELET VOLUME 7.1 FL (7.4-10.4); MONOCYTES # (AUTO) 0.8 X10'3 (0-0.9); NEUTROPHILS # (AUTO) 4.5 X10'3 (1.8-7.7); PLATELET COUNT 578 X10'3 (140-440); RED BLOOD COUNT 4.06 X10'6 (4.20-5.60); RED CELL DISTRIBUTION WIDTH 17.7 % (11.5-14.5); WHITE BLOOD COUNT 7.2 X10'3 (4.5-11.0)
[2017-11-23 05:48] LABS: ALANINE AMINOTRANSFERASE 60 U/L (12-78); ALBUMIN 2.4 G/DL (3.4-5.0); ALBUMIN/GLOBULIN RATIO 0.5 (1.1-1.5); ALKALINE PHOSPHATASE 143 IU/L (46-116); ANION GAP 8 (8-16); ASPARTATE AMINO TRANSFERASE 51 U/L (10-37); BILIRUBIN,TOTAL 0.3 MG/DL (0.1-1.0); BLOOD UREA NITROGEN 22 MG/DL (7-18); BUN/CREATININE RATIO 28.9 (6.6-38.0); CALCIUM 9.3 MG/DL (8.5-10.1); CHLORIDE 103 MMOL/L (99-107); CREATININE 0.76 MG/DL (0.40-0.90); GLUCOSE 124 MG/DL (70-104); MAGNESIUM 1.8 MG/DL (1.5-2.4); PHOSPHORUS 4.4 MG/DL (2.3-4.5); POTASSIUM 3.9 MMOL/L (3.5-5.1); SODIUM 137 MMOL/L (135-145); TOTAL CARBON DIOXIDE 26.3 MMOL/L (24-32); TOTAL PROTEIN 7.6 G/DL (6.4-8.2); TRIGLYCERIDES 135 MG/DL (20-135); eGFR 82 ML/MIN
[2017-11-23 07:00] VITALS: BP 114/65
[2017-11-23 07:37] LABS: PREALBUMIN 28.3 MG/DL (19-36)
[2017-11-23] MEDS: K and/or MAG REPLACEMENT MC SCH (07:43)
[2017-11-23] MEDS: K, MAG and/or Phos replacement - Verify level? MC SCH (07:43)
[2017-11-23] MEDS ORDERED: tPA-cathflo 2 MG/2 ml IV flush IVF ONE (07:45)
[2017-11-23] MEDS: ondansetron/PF 4mg/2ml inj IV PRN ×2 (07:54→21:14)
[2017-11-23] MEDS: lactobacillus rhamnosus 10,000 MMU CELLS/CAPSULE PO SCH ×2 (07:59→19:58)
[2017-11-23] MEDS: heparin, porcine 5000 units/ml vial SQ SCH ×2 (07:59→19:57)
[2017-11-23] MEDS: levoTHYROXINE sod inj. 100mcg/5 ml vial IV SCH (07:59)
[2017-11-23 11:00] VITALS: BP 119/75
[2017-11-23] MEDS ORDERED: HYDROmorphone inj. 0.5 MG/0.5 ML DISP.SYRIN IV PRN (11:25)
[2017-11-23] MEDS ORDERED: HYDROmorphone 1 mg/ml syringe IV PRN (11:35)
[2017-11-23] MEDS: [UNRECOGNIZED DRUG - REMARK] IV SCH (13:18)
[2017-11-23] MEDS: pantoprazole 40 MG vial IV SCH (13:27)
[2017-11-23] MEDS: ketorolac trometh. 30mg/ml inj. IV SCH ×2 (13:27→19:58)
[2017-11-23 19:00] VITALS: BP 117/63
[2017-11-23 23:30] VITALS: BP 118/60
[2017-11-24] MEDS: piperacillin/tazo 3.375gm/50ml 50 ML IV SCH ×4 (01:53→20:00)
[2017-11-24] MEDS: ketorolac trometh. 30mg/ml inj. IV SCH ×4 (01:58→20:07)
[2017-11-24] MEDS: [UNRECOGNIZED DRUG - REMARK] IV SCH ×2 (04:02→20:07)
[2017-11-24] MEDS: HYDROmorphone 1 mg/ml syringe IV PRN ×4 (04:18→22:25)
[2017-11-24 05:54] LABS: BASOPHILS % (AUTO) 0.6 % (0-1); EOSINOPHILS # (AUTO) 0.5 X10'3 (0-0.9); EOSINOPHILS % (AUTO) 8.1 % (0-6); HEMATOCRIT 31.7 % (35.0-45.0); HEMOGLOBIN 10.5 g/dl (12.0-16.0); LYMPHOCYTES # (AUTO) 1.5 X10'3 (1.1-4.8); LYMPHOCYTES % (AUTO) 23.1 % (21-51); MEAN CORPUSCULAR HEMOGLOBIN 26.4 PG (27.0-31.0); MEAN CORPUSCULAR HGB CONC 33.2 % (33.0-36.5); MEAN CORPUSCULAR VOLUME 79.7 FL (78-98); MEAN PLATELET VOLUME 7.2 FL (7.4-10.4); MONOCYTES # (AUTO) 0.6 X10'3 (0-0.9); MONOCYTES % (AUTO) 8.7 % (2-12); NEUTROPHILS # (AUTO) 3.9 X10'3 (1.8-7.7); NEUTROPHILS % (AUTO) 59.5 % (42-75); PLATELET COUNT 510 X10'3 (140-440); RED BLOOD COUNT 3.98 X10'6 (4.20-5.60); RED CELL DISTRIBUTION WIDTH 17.7 % (11.5-14.5); WHITE BLOOD COUNT 6.6 X10'3 (4.5-11.0)
[2017-11-24 06:19] LABS: ALANINE AMINOTRANSFERASE 63 U/L (12-78); ALBUMIN 2.4 G/DL (3.4-5.0); ALBUMIN/GLOBULIN RATIO 0.5 (1.1-1.5); ALKALINE PHOSPHATASE 134 IU/L (46-116); ANION GAP 10 (8-16); ASPARTATE AMINO TRANSFERASE 47 U/L (10-37); BILIRUBIN,TOTAL 0.2 MG/DL (0.1-1.0); BLOOD UREA NITROGEN 26 MG/DL (7-18); BUN/CREATININE RATIO 34.2 (6.6-38.0); CALCIUM 9.3 MG/DL (8.5-10.1); CHLORIDE 102 MMOL/L (99-107); CREATININE 0.76 MG/DL (0.40-0.90); GLUCOSE 120 MG/DL (70-104); MAGNESIUM 2.1 MG/DL (1.5-2.4); SODIUM 138 MMOL/L (135-145); TOTAL CARBON DIOXIDE 26.1 MMOL/L (24-32); TOTAL PROTEIN 7.4 G/DL (6.4-8.2); eGFR 82 ML/MIN
[2017-11-24 06:50] LABS: UREA NITROGEN 24HR,URINE 15.9 GM/24HR (7-20)
[2017-11-24 07:00] VITALS: BP 114/61
[2017-11-24] MEDS: levoTHYROXINE sod inj. 100mcg/5 ml vial IV SCH (07:49)
[2017-11-24] MEDS: heparin, porcine 5000 units/ml vial SQ SCH ×2 (07:50→20:08)
[2017-11-24] MEDS: pantoprazole 40 MG vial IV SCH (07:51)
[2017-11-24] MEDS: lactobacillus rhamnosus 10,000 MMU CELLS/CAPSULE PO SCH ×3 (07:51→20:08)
[2017-11-24] MEDS: K and/or MAG REPLACEMENT MC SCH (08:00)
[2017-11-24] MEDS: K, MAG and/or Phos replacement - Verify level? MC SCH (08:00)
[2017-11-24] MEDS: ondansetron/PF 4mg/2ml inj IV PRN ×2 (08:16→16:49)
[2017-11-24 11:00] VITALS: BP 117/67
[2017-11-24 18:40] VITALS: BP 116/51
[2017-11-25] VITALS: BP 135/59
[2017-11-25] MEDS: piperacillin/tazo 3.375gm/50ml 50 ML IV SCH ×4 (02:04→21:39)
[2017-11-25] MEDS: ketorolac trometh. 30mg/ml inj. IV SCH ×4 (02:09→21:39)
[2017-11-25] MEDS: ondansetron/PF 4mg/2ml inj IV PRN ×3 (02:29→16:54)
[2017-11-25 06:56] VITALS: BP 126/60
[2017-11-25] MEDS: pantoprazole 40 MG vial IV SCH (07:13)
[2017-11-25] MEDS: levoTHYROXINE sod inj. 100mcg/5 ml vial IV SCH (07:13)
[2017-11-25] MEDS: heparin, porcine 5000 units/ml vial SQ SCH ×2 (07:14→21:38)
[2017-11-25] MEDS: K and/or MAG REPLACEMENT MC SCH (08:00)
[2017-11-25] MEDS: lactobacillus rhamnosus 10,000 MMU CELLS/CAPSULE PO SCH ×2 (08:00→19:57)
[2017-11-25] MEDS: K, MAG and/or Phos replacement - Verify level? MC SCH (08:00)
[2017-11-25 11:39] VITALS: BP 128/67
[2017-11-25] MEDS: Dextrose 10%-water IV solution 1,000 ML IV PRN (12:40)
[2017-11-25] MEDS: HYDROmorphone 1 mg/ml syringe IV PRN (12:41)
[2017-11-25] MEDS ORDERED: magnesium 4gm in 100ml NS 100 ML IV PRN (13:30)
[2017-11-25] MEDS ORDERED: potassium Cl 40MEQ/NS 500ml 500 ML IV PRN ×2 (13:30)
[2017-11-25] MEDS ORDERED: magnesium 2GM in 50ml NS 50 ML IV PRN (13:30)
[2017-11-25] MEDS: CHLORIDE IV SCH ×9 (17:28)
[2017-11-25] MEDS: [UNRECOGNIZED DRUG - OTHER] IV SCH ×9 (17:28)
[2017-11-25] MEDS: POTASSIUM IV SCH ×9 (17:28)
[2017-11-25] MEDS: SODIUM IV SCH ×9 (17:28)
[2017-11-25] MEDS: FAT EMULSION IV SCH ×9 (17:28)
[2017-11-25 20:00] VITALS: BP 113/57
[2017-11-26] VITALS: BP 118/57
[2017-11-26] MEDS: piperacillin/tazo 3.375gm/50ml 50 ML IV SCH ×4 (02:30→20:20)
[2017-11-26] MEDS: SODIUM IV SCH ×27 (02:31→18:33)
[2017-11-26] MEDS: [UNRECOGNIZED DRUG - OTHER] IV SCH ×27 (02:31→18:33)
[2017-11-26] MEDS: CHLORIDE IV SCH ×27 (02:31→18:33)
[2017-11-26] MEDS: POTASSIUM IV SCH ×27 (02:31→18:33)
[2017-11-26] MEDS: FAT EMULSION IV SCH ×27 (02:31→18:33)
[2017-11-26] MEDS: ketorolac trometh. 30mg/ml inj. IV SCH ×4 (02:31→20:16)
[2017-11-26 05:58] LABS: ALANINE AMINOTRANSFERASE 57 U/L (12-78); ALBUMIN 2.5 G/DL (3.4-5.0); ALBUMIN/GLOBULIN RATIO 0.5 (1.1-1.5); ALKALINE PHOSPHATASE 122 IU/L (46-116); ANION GAP 9 (8-16); ASPARTATE AMINO TRANSFERASE 47 U/L (10-37); BILIRUBIN,TOTAL 0.2 MG/DL (0.1-1.0); BLOOD UREA NITROGEN 22 MG/DL (7-18); BUN/CREATININE RATIO 25.3 (6.6-38.0); CALCIUM 9.3 MG/DL (8.5-10.1); CHLORIDE 109 MMOL/L (99-107); CREATININE 0.87 MG/DL (0.40-0.90); GLUCOSE 126 MG/DL (70-104); MAGNESIUM 1.7 MG/DL (1.5-2.4); PHOSPHORUS 4.8 MG/DL (2.3-4.5); POTASSIUM 4.2 MMOL/L (3.5-5.1); PREALBUMIN 30.4 MG/DL (19-36); SODIUM 143 MMOL/L (135-145); TOTAL CARBON DIOXIDE 24.9 MMOL/L (24-32); TOTAL PROTEIN 7.3 G/DL (6.4-8.2); TRIGLYCERIDES 149 MG/DL (20-135); eGFR 70 ML/MIN
[2017-11-26 06:57] VITALS: BP 109/70
[2017-11-26] MEDS: K, MAG and/or Phos replacement - Verify level? MC SCH (08:00)
[2017-11-26] MEDS: lactobacillus rhamnosus 10,000 MMU CELLS/CAPSULE PO SCH ×2 (08:00→20:00)
[2017-11-26] MEDS: K and/or MAG REPLACEMENT MC SCH (08:00)
[2017-11-26] MEDS: levoTHYROXINE sod inj. 100mcg/5 ml vial IV SCH (08:16)
[2017-11-26] MEDS: pantoprazole 40 MG vial IV SCH (08:18)
[2017-11-26] MEDS: ondansetron/PF 4mg/2ml inj IV PRN (08:27)
[2017-11-26] MEDS: heparin, porcine 5000 units/ml vial SQ SCH ×2 (11:00→20:29)
[2017-11-26] MEDS: HYDROmorphone 1 mg/ml syringe IV PRN ×2 (13:26→23:58)
[2017-11-26 20:00] VITALS: BP 139/78
[2017-11-26] MEDS: fat emulsion IV 100 ML, MVI, adult No.4 with vit. K 5 ML, Trace element-5 inj. 0.5 ML i... IV SCH ×4 (20:30)
[2017-11-27] VITALS: BP 133/73
[2017-11-27] MEDS: piperacillin/tazo 3.375gm/50ml 50 ML IV SCH ×4 (02:43→20:49)
[2017-11-27] MEDS: ketorolac trometh. 30mg/ml inj. IV SCH ×4 (02:43→20:46)
[2017-11-27] MEDS: fat emulsion IV 100 ML, MVI, adult No.4 with vit. K 5 ML, Trace element-5 inj. 0.5 ML i... IV SCH ×12 (04:47→23:41)
[2017-11-27] MEDS: ondansetron/PF 4mg/2ml inj IV PRN ×3 (05:32→20:37)
[2017-11-27] MEDS: lactobacillus rhamnosus 10,000 MMU CELLS/CAPSULE PO SCH ×2 (06:47→20:00)
[2017-11-27] MEDS: K and/or MAG REPLACEMENT MC SCH (06:48)
[2017-11-27] MEDS: K, MAG and/or Phos replacement - Verify level? MC SCH (06:49)
[2017-11-27 06:56] VITALS: BP 123/67
[2017-11-27] MEDS: HYDROmorphone 1 mg/ml syringe IV PRN ×3 (08:22→23:56)
[2017-11-27] MEDS: pantoprazole 40 MG vial IV SCH (08:23)
[2017-11-27] MEDS: heparin, porcine 5000 units/ml vial SQ SCH ×2 (08:40→20:43)
[2017-11-27] MEDS: levoTHYROXINE sod inj. 100mcg/5 ml vial IV SCH (08:40)
[2017-11-27 10:13] LABS: ALANINE AMINOTRANSFERASE 61 U/L (12-78); ALBUMIN 2.5 G/DL (3.4-5.0); ALBUMIN/GLOBULIN RATIO 0.5 (1.1-1.5); ALKALINE PHOSPHATASE 132 IU/L (46-116); ANION GAP 9 (8-16); ASPARTATE AMINO TRANSFERASE 46 U/L (10-37); BILIRUBIN,TOTAL 0.2 MG/DL (0.1-1.0); BLOOD UREA NITROGEN 26 MG/DL (7-18); BUN/CREATININE RATIO 34.2 (6.6-38.0); CALCIUM 9.1 MG/DL (8.5-10.1); CHLORIDE 103 MMOL/L (99-107); CREATININE 0.76 MG/DL (0.40-0.90); GLUCOSE 102 MG/DL (70-104); MAGNESIUM 1.8 MG/DL (1.5-2.4); PHOSPHORUS 4.9 MG/DL (2.3-4.5); POTASSIUM 4.3 MMOL/L (3.5-5.1); SODIUM 137 MMOL/L (135-145); TOTAL CARBON DIOXIDE 25.4 MMOL/L (24-32); TOTAL PROTEIN 7.3 G/DL (6.4-8.2); eGFR 82 ML/MIN
[2017-11-27 12:01] VITALS: BP 177/78
[2017-11-27 20:00] VITALS: BP 145/70
[2017-11-28] VITALS: BP 125/72
[2017-11-28] MEDS: ketorolac trometh. 30mg/ml inj. IV SCH ×2 (02:44→10:09)
[2017-11-28] MEDS: piperacillin/tazo 3.375gm/50ml 50 ML IV SCH ×4 (02:45→19:37)
[2017-11-28 07:00] VITALS: BP 124/58
[2017-11-28] MEDS: K, MAG and/or Phos replacement - Verify level? MC SCH (08:00)
[2017-11-28] MEDS: K and/or MAG REPLACEMENT MC SCH (08:00)
[2017-11-28] MEDS: lactobacillus rhamnosus 10,000 MMU CELLS/CAPSULE PO SCH ×2 (08:00→19:45)
[2017-11-28] MEDS: pantoprazole 40 MG vial IV SCH (08:08)
[2017-11-28] MEDS: heparin, porcine 5000 units/ml vial SQ SCH ×2 (08:09→19:41)
[2017-11-28] MEDS: levoTHYROXINE sod inj. 100mcg/5 ml vial IV SCH (08:14)
[2017-11-28] MEDS: HYDROmorphone 1 mg/ml syringe IV PRN ×4 (08:15→22:06)
[2017-11-28] MEDS: fat emulsion IV 100 ML, MVI, adult No.4 with vit. K 5 ML, Trace element-5 inj. 0.5 ML i... IV SCH ×8 (09:07→17:40)
[2017-11-28] MEDS: ondansetron/PF 4mg/2ml inj IV PRN ×2 (09:08→17:28)
[2017-11-28 11:00] VITALS: BP 145/67
[2017-11-28 18:00] VITALS: BP 134/67
[2017-11-29] VITALS: BP 123/69
[2017-11-29] MEDS: ondansetron/PF 4mg/2ml inj IV PRN ×2 (00:55→10:34)
[2017-11-29] MEDS: piperacillin/tazo 3.375gm/50ml 50 ML IV SCH ×4 (01:04→20:23)
[2017-11-29] MEDS: fat emulsion IV 100 ML, MVI, adult No.4 with vit. K 5 ML, Trace element-5 inj. 0.5 ML i... IV SCH ×12 (01:45→20:23)
[2017-11-29] MEDS: HYDROmorphone 1 mg/ml syringe IV PRN ×3 (05:29→17:31)
[2017-11-29 07:00] VITALS: BP 117/61
[2017-11-29] MEDS: K and/or MAG REPLACEMENT MC SCH (07:19)
[2017-11-29] MEDS: K, MAG and/or Phos replacement - Verify level? MC SCH (08:00)
[2017-11-29] MEDS: lactobacillus rhamnosus 10,000 MMU CELLS/CAPSULE PO SCH ×2 (08:00→20:00)
[2017-11-29] MEDS: pantoprazole 40 MG vial IV SCH (08:09)
[2017-11-29] MEDS: levoTHYROXINE sod inj. 100mcg/5 ml vial IV SCH (08:11)
[2017-11-29] MEDS: heparin, porcine 5000 units/ml vial SQ SCH ×2 (08:12→20:24)
[2017-11-29 20:30] VITALS: BP 109/63
[2017-11-29] MEDS: proCHLORperazine 10 MG/2 ml inj IV PRN (22:46)
[2017-11-29 23:30] VITALS: BP 116/62
[2017-11-30] MEDS: ondansetron/PF 4mg/2ml inj IV PRN ×3 (01:34→17:26)
[2017-11-30] MEDS: piperacillin/tazo 3.375gm/50ml 50 ML IV SCH ×4 (01:35→19:45)
[2017-11-30] MEDS: HYDROmorphone 1 mg/ml syringe IV PRN ×4 (01:35→19:44)
[2017-11-30] MEDS: fat emulsion IV 100 ML, MVI, adult No.4 with vit. K 5 ML, Trace element-5 inj. 0.5 ML i... IV SCH ×12 (05:01→20:34)
[2017-11-30 06:36] LABS: ALANINE AMINOTRANSFERASE 47 U/L (12-78); ALBUMIN 2.4 G/DL (3.4-5.0); ALBUMIN/GLOBULIN RATIO 0.5 (1.1-1.5); ALKALINE PHOSPHATASE 137 IU/L (46-116); ANION GAP 7 (8-16); ASPARTATE AMINO TRANSFERASE 31 U/L (10-37); BILIRUBIN,TOTAL 0.2 MG/DL (0.1-1.0); BLOOD UREA NITROGEN 23 MG/DL (7-18); BUN/CREATININE RATIO 31.1 (6.6-38.0); CHLORIDE 103 MMOL/L (99-107); CREATININE 0.74 MG/DL (0.40-0.90); GLUCOSE 104 MG/DL (70-104); MAGNESIUM 1.9 MG/DL (1.5-2.4); PHOSPHORUS 4.3 MG/DL (2.3-4.5); POTASSIUM 4.3 MMOL/L (3.5-5.1); PREALBUMIN 26.2 MG/DL (19-36); SODIUM 138 MMOL/L (135-145); TOTAL CARBON DIOXIDE 27.8 MMOL/L (24-32); TOTAL PROTEIN 7.5 G/DL (6.4-8.2); TRIGLYCERIDES 115 MG/DL (20-135); eGFR 84 ML/MIN
[2017-11-30 06:43] LABS: UREA NITROGEN 24HR,URINE 17.4 GM/24HR (7-20)
[2017-11-30 07:06] VITALS: BP 118/76
[2017-11-30] MEDS: K and/or MAG REPLACEMENT MC SCH (07:47)
[2017-11-30] MEDS: K, MAG and/or Phos replacement - Verify level? MC SCH (07:48)
[2017-11-30] MEDS: lactobacillus rhamnosus 10,000 MMU CELLS/CAPSULE PO SCH ×2 (07:49→19:35)
[2017-11-30] MEDS: pantoprazole 40 MG vial IV SCH (07:59)
[2017-11-30] MEDS: heparin, porcine 5000 units/ml vial SQ SCH ×2 (08:04→19:45)
[2017-11-30] MEDS: levoTHYROXINE sod inj. 100mcg/5 ml vial IV SCH (08:04)
[2017-11-30 11:09] VITALS: BP 128/53
[2017-11-30 19:30] VITALS: BP 137/59
[2017-11-30 23:30] VITALS: BP 129/71
[2017-12-01] MEDS: HYDROmorphone 1 mg/ml syringe IV PRN ×5 (01:17→20:43)
[2017-12-01] MEDS: ondansetron/PF 4mg/2ml inj IV PRN ×3 (01:17→22:54)
[2017-12-01] MEDS: piperacillin/tazo 3.375gm/50ml 50 ML IV SCH ×4 (01:18→19:07)
[2017-12-01] MEDS: fat emulsion IV 100 ML, MVI, adult No.4 with vit. K 5 ML, Trace element-5 inj. 0.5 ML i... IV SCH ×12 (05:17→22:45)
[2017-12-01 07:16] VITALS: BP 115/69
[2017-12-01] MEDS: pantoprazole 40 MG vial IV SCH (07:35)
[2017-12-01] MEDS: levoTHYROXINE sod inj. 100mcg/5 ml vial IV SCH (07:35)
[2017-12-01] MEDS: heparin, porcine 5000 units/ml vial SQ SCH ×2 (07:36→19:08)
[2017-12-01] MEDS: lactobacillus rhamnosus 10,000 MMU CELLS/CAPSULE PO SCH ×2 (08:00→19:09)
[2017-12-01] MEDS: K, MAG and/or Phos replacement - Verify level? MC SCH (08:00)
[2017-12-01] MEDS: proCHLORperazine 10 MG/2 ml inj IV PRN (11:29)
[2017-12-01 11:42] VITALS: BP 117/70
[2017-12-01 18:00] VITALS: BP 119/68
[2017-12-01 23:30] VITALS: BP 114/69
[2017-12-02] MEDS: HYDROmorphone 1 mg/ml syringe IV PRN ×5 (01:18→21:42)
[2017-12-02] MEDS: piperacillin/tazo 3.375gm/50ml 50 ML IV SCH ×4 (01:41→20:56)
[2017-12-02] MEDS: fat emulsion IV 100 ML, MVI, adult No.4 with vit. K 5 ML, Trace element-5 inj. 0.5 ML i... IV SCH ×8 (06:22→17:26)
[2017-12-02] MEDS: heparin, porcine 5000 units/ml vial SQ SCH ×2 (07:26→20:58)
[2017-12-02] MEDS: pantoprazole 40 MG vial IV SCH (07:26)
[2017-12-02] MEDS: ondansetron/PF 4mg/2ml inj IV PRN ×2 (07:27→17:25)
[2017-12-02] MEDS: lactobacillus rhamnosus 10,000 MMU CELLS/CAPSULE PO SCH ×2 (07:44→20:00)
[2017-12-02] MEDS: K, MAG and/or Phos replacement - Verify level? MC SCH (07:44)
[2017-12-02 08:18] VITALS: BP 124/67
[2017-12-02] MEDS: levoTHYROXINE sod inj. 100mcg/5 ml vial IV SCH (08:31)
[2017-12-02 11:23] VITALS: BP 112/66
[2017-12-02] MEDS: Dextrose 10%-water IV solution 1,000 ML IV PRN (14:47)
[2017-12-02 16:11] LABS: BASOPHILS % (AUTO) 0.4 % (0-1); EOSINOPHILS # (AUTO) 0.4 X10'3 (0-0.9); HEMATOCRIT 27.8 % (35.0-45.0); HEMOGLOBIN 9.2 g/dl (12.0-16.0); LYMPHOCYTES # (AUTO) 1.4 X10'3 (1.1-4.8); LYMPHOCYTES % (AUTO) 16.8 % (21-51); MEAN CORPUSCULAR HEMOGLOBIN 26.1 PG (27.0-31.0); MEAN CORPUSCULAR HGB CONC 33.2 % (33.0-36.5); MEAN CORPUSCULAR VOLUME 78.8 FL (78-98); MEAN PLATELET VOLUME 8.1 FL (7.4-10.4); MONOCYTES # (AUTO) 0.7 X10'3 (0-0.9); MONOCYTES % (AUTO) 8.5 % (2-12); NEUTROPHILS % (AUTO) 69.3 % (42-75); PLATELET COUNT 428 X10'3 (140-440); RED BLOOD COUNT 3.53 X10'6 (4.20-5.60); RED CELL DISTRIBUTION WIDTH 17.3 % (11.5-14.5); WHITE BLOOD COUNT 8.6 X10'3 (4.5-11.0)
[2017-12-02 16:37] LABS: ALANINE AMINOTRANSFERASE 30 U/L (12-78); ALBUMIN 2.3 G/DL (3.4-5.0); ALBUMIN/GLOBULIN RATIO 0.5 (1.1-1.5); ALKALINE PHOSPHATASE 132 IU/L (46-116); ANION GAP 10 (8-16); ASPARTATE AMINO TRANSFERASE 21 U/L (10-37); BILIRUBIN,TOTAL 0.2 MG/DL (0.1-1.0); BLOOD UREA NITROGEN 21 MG/DL (7-18); BUN/CREATININE RATIO 24.4 (6.6-38.0); CALCIUM 8.5 MG/DL (8.5-10.1); CHLORIDE 94 MMOL/L (99-107); CREATININE 0.86 MG/DL (0.40-0.90); POTASSIUM 3.7 MMOL/L (3.5-5.1); SODIUM 129 MMOL/L (135-145); TOTAL PROTEIN 7.3 G/DL (6.4-8.2); eGFR 71 ML/MIN
[2017-12-02 16:43] LABS: GLUCOSE 595 MG/DL (70-104)
[2017-12-02 17:36] LABS: ALANINE AMINOTRANSFERASE 31 U/L (12-78); ALBUMIN 2.5 G/DL (3.4-5.0); ALBUMIN/GLOBULIN RATIO 0.5 (1.1-1.5); ALKALINE PHOSPHATASE 145 IU/L (46-116); ANION GAP 11 (8-16); ASPARTATE AMINO TRANSFERASE 23 U/L (10-37); BILIRUBIN,TOTAL 0.3 MG/DL (0.1-1.0); BLOOD UREA NITROGEN 20 MG/DL (7-18); BUN/CREATININE RATIO 25.3 (6.6-38.0); CALCIUM 9.5 MG/DL (8.5-10.1); CHLORIDE 101 MMOL/L (99-107); CREATININE 0.79 MG/DL (0.40-0.90); GLUCOSE 108 MG/DL (70-104); POTASSIUM 3.9 MMOL/L (3.5-5.1); SODIUM 138 MMOL/L (135-145); TOTAL CARBON DIOXIDE 26.3 MMOL/L (24-32); TOTAL PROTEIN 7.7 G/DL (6.4-8.2); eGFR 78 ML/MIN
[2017-12-02 20:00] VITALS: BP 131/72
[2017-12-02] MEDS: diatr meglu/diatrizoate 30ml oral sol.-(3 dose) bottle PO SCH ×2 (20:56→21:00)
[2017-12-03] VITALS: BP 113/58
[2017-12-03] MEDS: fat emulsion IV 100 ML, MVI, adult No.4 with vit. K 5 ML, Trace element-5 inj. 0.5 ML i... IV SCH ×12 (01:11→21:29)
[2017-12-03] MEDS: piperacillin/tazo 3.375gm/50ml 50 ML IV SCH ×4 (02:09→20:02)
[2017-12-03] MEDS: HYDROmorphone 1 mg/ml syringe IV PRN ×5 (04:44→23:17)
[2017-12-03] MEDS: ondansetron/PF 4mg/2ml inj IV PRN ×3 (04:53→18:54)
[2017-12-03 05:14] LABS: BASOPHILS % (AUTO) 0.3 % (0-1); EOSINOPHILS # (AUTO) 0.6 X10'3 (0-0.9); EOSINOPHILS % (AUTO) 7.9 % (0-6); HEMATOCRIT 29.5 % (35.0-45.0); HEMOGLOBIN 9.7 g/dl (12.0-16.0); LYMPHOCYTES % (AUTO) 12.6 % (21-51); MEAN CORPUSCULAR HEMOGLOBIN 26.1 PG (27.0-31.0); MEAN CORPUSCULAR HGB CONC 32.8 % (33.0-36.5); MEAN CORPUSCULAR VOLUME 79.4 FL (78-98); MEAN PLATELET VOLUME 7.8 FL (7.4-10.4); MONOCYTES # (AUTO) 0.9 X10'3 (0-0.9); MONOCYTES % (AUTO) 10.5 % (2-12); NEUTROPHILS # (AUTO) 5.6 X10'3 (1.8-7.7); NEUTROPHILS % (AUTO) 68.7 % (42-75); PLATELET COUNT 439 X10'3 (140-440); RED BLOOD COUNT 3.72 X10'6 (4.20-5.60); RED CELL DISTRIBUTION WIDTH 17.5 % (11.5-14.5); WHITE BLOOD COUNT 8.1 X10'3 (4.5-11.0)
[2017-12-03 05:34] LABS: ALBUMIN 2.3 G/DL (3.4-5.0); ANION GAP 11 (8-16); BLOOD UREA NITROGEN 20 MG/DL (7-18); BUN/CREATININE RATIO 26.3 (6.6-38.0); CALCIUM 9.3 MG/DL (8.5-10.1); CHLORIDE 102 MMOL/L (99-107); CREATININE 0.76 MG/DL (0.40-0.90); GLUCOSE 110 MG/DL (70-104); MAGNESIUM 1.9 MG/DL (1.5-2.4); POTASSIUM 3.9 MMOL/L (3.5-5.1); SODIUM 140 MMOL/L (135-145); TOTAL CARBON DIOXIDE 26.7 MMOL/L (24-32); TRIGLYCERIDES 104 MG/DL (20-135); eGFR 82 ML/MIN
[2017-12-03 06:17] LABS: PREALBUMIN 22.2 MG/DL (19-36)
[2017-12-03] MEDS: diatr meglu/diatrizoate 30ml oral sol.-(3 dose) bottle PO SCH ×4 (07:00→20:09)
[2017-12-03 07:23] VITALS: BP 115/67
[2017-12-03] MEDS: lactobacillus rhamnosus 10,000 MMU CELLS/CAPSULE PO SCH ×2 (08:00→19:54)
[2017-12-03] MEDS: K, MAG and/or Phos replacement - Verify level? MC SCH (08:00)
[2017-12-03] MEDS: heparin, porcine 5000 units/ml vial SQ SCH ×2 (08:29→20:01)
[2017-12-03] MEDS: pantoprazole 40 MG vial IV SCH (08:30)
[2017-12-03 08:51] LABS: HEMOGLOBIN A1C 5.4 % (4.5-6.2)
[2017-12-03] MEDS: levoTHYROXINE sod inj. 100mcg/5 ml vial IV SCH (09:52)
[2017-12-03] MEDS ORDERED: iohexol 300mg/ml 100ml inj. ONE (10:05)
[2017-12-03 11:00] VITALS: BP 120/53
[2017-12-03 20:00] VITALS: BP 131/71
[2017-12-04] VITALS: BP 121/67
[2017-12-04] MEDS: piperacillin/tazo 3.375gm/50ml 50 ML IV SCH ×4 (01:41→19:33)
[2017-12-04] MEDS: ondansetron/PF 4mg/2ml inj IV PRN ×3 (03:05→17:46)
[2017-12-04] MEDS: HYDROmorphone 1 mg/ml syringe IV PRN ×4 (03:09→16:48)
[2017-12-04 04:26] LABS: BASOPHILS % (AUTO) 0.5 % (0-1); EOSINOPHILS # (AUTO) 0.6 X10'3 (0-0.9); HEMATOCRIT 29.8 % (35.0-45.0); HEMOGLOBIN 9.8 g/dl (12.0-16.0); LYMPHOCYTES # (AUTO) 1.3 X10'3 (1.1-4.8); LYMPHOCYTES % (AUTO) 16.9 % (21-51); MEAN CORPUSCULAR HEMOGLOBIN 26.3 PG (27.0-31.0); MEAN CORPUSCULAR VOLUME 79.6 FL (78-98); MEAN PLATELET VOLUME 7.8 FL (7.4-10.4); MONOCYTES # (AUTO) 0.8 X10'3 (0-0.9); MONOCYTES % (AUTO) 10.3 % (2-12); NEUTROPHILS # (AUTO) 5.1 X10'3 (1.8-7.7); NEUTROPHILS % (AUTO) 64.3 % (42-75); PLATELET COUNT 484 X10'3 (140-440); RED BLOOD COUNT 3.74 X10'6 (4.20-5.60); RED CELL DISTRIBUTION WIDTH 15.6 % (11.5-14.5); WHITE BLOOD COUNT 7.8 X10'3 (4.5-11.0)
[2017-12-04 04:27] LABS: ALBUMIN 2.3 G/DL (3.4-5.0); ANION GAP 6 (8-16); BLOOD UREA NITROGEN 20 MG/DL (7-18); CALCIUM 9.5 MG/DL (8.5-10.1); CHLORIDE 103 MMOL/L (99-107); CREATININE 0.74 MG/DL (0.40-0.90); GLUCOSE 100 MG/DL (70-104); POTASSIUM 4.1 MMOL/L (3.5-5.1); SODIUM 138 MMOL/L (135-145); TOTAL CARBON DIOXIDE 29.4 MMOL/L (24-32); eGFR 84 ML/MIN
[2017-12-04 07:21] VITALS: BP 123/61
[2017-12-04] MEDS: pantoprazole 40 MG vial IV SCH (07:29)
[2017-12-04] MEDS: heparin, porcine 5000 units/ml vial SQ SCH ×2 (07:29→19:33)
[2017-12-04] MEDS: lactobacillus rhamnosus 10,000 MMU CELLS/CAPSULE PO SCH ×2 (07:30→19:48)
[2017-12-04] MEDS: fat emulsion IV 100 ML, MVI, adult No.4 with vit. K 5 ML, Trace element-5 inj. 0.5 ML i... IV SCH ×8 (07:30→17:36)
[2017-12-04] MEDS: K, MAG and/or Phos replacement - Verify level? MC SCH (07:31)
[2017-12-04] MEDS: levoTHYROXINE sod inj. 100mcg/5 ml vial IV SCH (09:05)
[2017-12-04 11:23] VITALS: BP 136/67
[2017-12-04 18:00] VITALS: BP 108/52
[2017-12-05] MEDS: HYDROmorphone 1 mg/ml syringe IV PRN ×6 (00:17→23:39)
[2017-12-05] MEDS: ondansetron/PF 4mg/2ml inj IV PRN ×3 (00:34→17:07)
[2017-12-05] MEDS: piperacillin/tazo 3.375gm/50ml 50 ML IV SCH ×4 (03:00→20:02)
[2017-12-05] MEDS: fat emulsion IV 100 ML, MVI, adult No.4 with vit. K 5 ML, Trace element-5 inj. 0.5 ML i... IV SCH ×16 (03:01→21:20)
[2017-12-05 05:33] LABS: BASOPHILS % (AUTO) 0.5 % (0-1); EOSINOPHILS # (AUTO) 0.6 X10'3 (0-0.9); EOSINOPHILS % (AUTO) 7.5 % (0-6); HEMATOCRIT 30.8 % (35.0-45.0); HEMOGLOBIN 10.3 g/dl (12.0-16.0); LYMPHOCYTES # (AUTO) 1.2 X10'3 (1.1-4.8); LYMPHOCYTES % (AUTO) 13.7 % (21-51); MEAN CORPUSCULAR HEMOGLOBIN 26.5 PG (27.0-31.0); MEAN CORPUSCULAR HGB CONC 33.3 % (33.0-36.5); MEAN CORPUSCULAR VOLUME 79.6 FL (78-98); MEAN PLATELET VOLUME 7.6 FL (7.4-10.4); MONOCYTES # (AUTO) 0.8 X10'3 (0-0.9); MONOCYTES % (AUTO) 9.7 % (2-12); NEUTROPHILS # (AUTO) 5.8 X10'3 (1.8-7.7); NEUTROPHILS % (AUTO) 68.6 % (42-75); PLATELET COUNT 473 X10'3 (140-440); RED BLOOD COUNT 3.87 X10'6 (4.20-5.60); WHITE BLOOD COUNT 8.4 X10'3 (4.5-11.0)
[2017-12-05 05:45] LABS: ALBUMIN 2.3 G/DL (3.4-5.0); ANION GAP 8 (8-16); BLOOD UREA NITROGEN 20 MG/DL (7-18); BUN/CREATININE RATIO 23.5 (6.6-38.0); CALCIUM 9.4 MG/DL (8.5-10.1); CHLORIDE 104 MMOL/L (99-107); CREATININE 0.85 MG/DL (0.40-0.90); GLUCOSE 97 MG/DL (70-104); POTASSIUM 4.2 MMOL/L (3.5-5.1); SODIUM 140 MMOL/L (135-145); TOTAL CARBON DIOXIDE 27.6 MMOL/L (24-32); eGFR 72 ML/MIN
[2017-12-05] MEDS: lactobacillus rhamnosus 10,000 MMU CELLS/CAPSULE PO SCH ×2 (06:28→20:00)
[2017-12-05 07:09] VITALS: BP 111/71
[2017-12-05] MEDS: K, MAG and/or Phos replacement - Verify level? MC SCH (07:36)
[2017-12-05] MEDS: heparin, porcine 5000 units/ml vial SQ SCH ×2 (07:45→20:05)
[2017-12-05] MEDS: pantoprazole 40 MG vial IV SCH (07:46)
[2017-12-05] MEDS ORDERED: diatrozoate meglu/diatrozoate sod (37% iodine) 120ML oral solution ONE ×2 (08:47→08:54)
[2017-12-05] MEDS: levoTHYROXINE sod inj. 100mcg/5 ml vial IV SCH (09:25)
[2017-12-05 11:28] VITALS: BP 109/64
[2017-12-05 19:00] VITALS: BP 132/69
[2017-12-06] VITALS: BP 119/66
[2017-12-06] MEDS: piperacillin/tazo 3.375gm/50ml 50 ML IV SCH ×4 (02:18→19:42)
[2017-12-06 04:19] LABS: BASOPHILS % (AUTO) 0.1 % (0-1); EOSINOPHILS # (AUTO) 0.6 X10'3 (0-0.9); EOSINOPHILS % (AUTO) 7.2 % (0-6); HEMATOCRIT 28.9 % (35.0-45.0); HEMOGLOBIN 9.6 g/dl (12.0-16.0); LYMPHOCYTES # (AUTO) 1.1 X10'3 (1.1-4.8); LYMPHOCYTES % (AUTO) 13.4 % (21-51); MEAN CORPUSCULAR HEMOGLOBIN 26.6 PG (27.0-31.0); MEAN CORPUSCULAR HGB CONC 33.3 % (33.0-36.5); MEAN CORPUSCULAR VOLUME 79.9 FL (78-98); MEAN PLATELET VOLUME 7.6 FL (7.4-10.4); MONOCYTES # (AUTO) 0.6 X10'3 (0-0.9); MONOCYTES % (AUTO) 7.4 % (2-12); NEUTROPHILS # (AUTO) 6.1 X10'3 (1.8-7.7); NEUTROPHILS % (AUTO) 71.9 % (42-75); PLATELET COUNT 501 X10'3 (140-440); RED BLOOD COUNT 3.62 X10'6 (4.20-5.60); WHITE BLOOD COUNT 8.5 X10'3 (4.5-11.0)
[2017-12-06 04:28] LABS: ALBUMIN 2.3 G/DL (3.4-5.0); ANION GAP 7 (8-16); BLOOD UREA NITROGEN 21 MG/DL (7-18); BUN/CREATININE RATIO 29.6 (6.6-38.0); CHLORIDE 103 MMOL/L (99-107); CREATININE 0.71 MG/DL (0.40-0.90); GLUCOSE 102 MG/DL (70-104); SODIUM 137 MMOL/L (135-145); eGFR 89 ML/MIN
[2017-12-06] MEDS: ondansetron/PF 4mg/2ml inj IV PRN ×3 (04:28→18:52)
[2017-12-06] MEDS: HYDROmorphone 1 mg/ml syringe IV PRN ×3 (04:41→18:53)
[2017-12-06] MEDS: fat emulsion IV 100 ML, MVI, adult No.4 with vit. K 5 ML, Trace element-5 inj. 0.5 ML i... IV SCH ×8 (05:47→15:07)
[2017-12-06 07:21] VITALS: BP 124/76
[2017-12-06] MEDS: lactobacillus rhamnosus 10,000 MMU CELLS/CAPSULE PO SCH ×2 (08:00→20:00)
[2017-12-06] MEDS: K, MAG and/or Phos replacement - Verify level? MC SCH (08:00)
[2017-12-06] MEDS ORDERED: HYDROcodone/acetaminophen 5mg/325mg tablet PO PRN (09:15)
[2017-12-06] MEDS: levoTHYROXINE sod inj. 100mcg/5 ml vial IV SCH (09:34)
[2017-12-06] MEDS: pantoprazole 40 MG vial IV SCH (09:34)
[2017-12-06] MEDS: heparin, porcine 5000 units/ml vial SQ SCH ×2 (10:03→19:43)
[2017-12-06 12:31] VITALS: BP 146/65
[2017-12-06 19:00] VITALS: BP 128/74
[2017-12-07] VITALS: BP 125/70
[2017-12-07] MEDS: fat emulsion IV 100 ML, MVI, adult No.4 with vit. K 5 ML, Trace element-5 inj. 0.5 ML i... IV SCH ×16 (00:58→19:44)
[2017-12-07] MEDS: piperacillin/tazo 3.375gm/50ml 50 ML IV SCH ×2 (01:48→08:13)
[2017-12-07] MEDS: HYDROmorphone 1 mg/ml syringe IV PRN ×5 (03:27→23:58)
[2017-12-07 04:45] LABS: UREA NITROGEN 24HR,URINE 20.6 GM/24HR (7-20)
[2017-12-07 05:56] LABS: MAGNESIUM 1.8 MG/DL (1.5-2.4); PREALBUMIN 24.3 MG/DL (19-36)
[2017-12-07 07:18] VITALS: BP 121/69
[2017-12-07] MEDS: lactobacillus rhamnosus 10,000 MMU CELLS/CAPSULE PO SCH (07:53)
[2017-12-07] MEDS: K, MAG and/or Phos replacement - Verify level? MC SCH (08:00)
[2017-12-07] MEDS: ondansetron/PF 4mg/2ml inj IV PRN (08:03)
[2017-12-07] MEDS: heparin, porcine 5000 units/ml vial SQ SCH ×2 (08:13→19:45)
[2017-12-07] MEDS: pantoprazole 40 MG vial IV SCH (08:13)
[2017-12-07] MEDS: levoTHYROXINE sod inj. 100mcg/5 ml vial IV SCH (08:13)
[2017-12-07] MEDS ORDERED: ondansetron/PF 4mg/2ml inj IV ONE (09:20)
[2017-12-07] MEDS ORDERED: metoclopramide 5 mg/ml inj IV PRN (10:35)
[2017-12-07] MEDS: metoclopramide 5 mg/ml inj IV PRN (10:50)
[2017-12-07 11:00] VITALS: BP 119/69
[2017-12-07 20:00] VITALS: BP 128/75
[2017-12-08] VITALS: BP 124/75
[2017-12-08] MEDS: HYDROmorphone 1 mg/ml syringe IV PRN ×5 (03:53→22:01)
[2017-12-08] MEDS: fat emulsion IV 100 ML, MVI, adult No.4 with vit. K 5 ML, Trace element-5 inj. 0.5 ML i... IV SCH ×12 (05:35→22:01)
[2017-12-08 07:00] VITALS: BP 115/70
[2017-12-08] MEDS ORDERED: levoTHYROXINE 75mcg tablet PO SCH (07:00)
[2017-12-08] MEDS: pantoprazole 40 MG vial IV SCH (07:21)
[2017-12-08] MEDS: heparin, porcine 5000 units/ml vial SQ SCH ×2 (07:22→19:35)
[2017-12-08] MEDS: K, MAG and/or Phos replacement - Verify level? MC SCH (07:22)
[2017-12-08] MEDS: levoTHYROXINE sod inj. 100mcg/5 ml vial IV SCH (07:22)
[2017-12-08] MEDS: metoclopramide 5 mg/ml inj IV PRN (07:22)
[2017-12-08 10:52] VITALS: BP 132/91
[2017-12-08 12:21] LABS: ALANINE AMINOTRANSFERASE 33 U/L (12-78); ALBUMIN 2.3 G/DL (3.4-5.0); ALBUMIN/GLOBULIN RATIO 0.5 (1.1-1.5); ALKALINE PHOSPHATASE 136 IU/L (46-116); ANION GAP 8 (8-16); ASPARTATE AMINO TRANSFERASE 27 U/L (10-37); BILIRUBIN,TOTAL 0.2 MG/DL (0.1-1.0); BLOOD UREA NITROGEN 20 MG/DL (7-18); BUN/CREATININE RATIO 35.1 (6.6-38.0); CHLORIDE 101 MMOL/L (99-107); CREATININE 0.57 MG/DL (0.40-0.90); GLUCOSE 111 MG/DL (70-104); SODIUM 136 MMOL/L (135-145); TOTAL CARBON DIOXIDE 26.9 MMOL/L (24-32); TOTAL PROTEIN 7.4 G/DL (6.4-8.2); eGFR > 90 ML/MIN
[2017-12-08] MEDS: ondansetron/PF 4mg/2ml inj IV PRN (13:02)
[2017-12-08] MEDS: simethicone 80mg chew tab PO PRN (13:17)
[2017-12-08] MEDS: LACTOSE-FREE FOOD (BOOST BREEZE) 237ML PO SCH (18:30)
[2017-12-08 20:00] VITALS: BP 143/62
[2017-12-09] VITALS: BP 123/60
[2017-12-09] MEDS: HYDROmorphone 1 mg/ml syringe IV PRN ×6 (01:59→23:48)
[2017-12-09] MEDS: fat emulsion IV 100 ML, MVI, adult No.4 with vit. K 5 ML, Trace element-5 inj. 0.5 ML i... IV SCH ×12 (06:34→22:18)
[2017-12-09 06:59] VITALS: BP 124/71
[2017-12-09] MEDS: pantoprazole 40 MG vial IV SCH (07:21)
[2017-12-09] MEDS: simethicone 80mg chew tab PO PRN (07:22)
[2017-12-09] MEDS: ondansetron/PF 4mg/2ml inj IV PRN ×2 (07:22→20:34)
[2017-12-09] MEDS: heparin, porcine 5000 units/ml vial SQ SCH ×2 (07:22→20:34)
[2017-12-09] MEDS: LACTOSE-FREE FOOD (BOOST BREEZE) 237ML PO SCH ×3 (07:35→18:33)
[2017-12-09] MEDS: K, MAG and/or Phos replacement - Verify level? MC SCH (07:43)
[2017-12-09] MEDS: levoTHYROXINE sod inj. 100mcg/5 ml vial IV SCH (08:22)
[2017-12-09 11:47] VITALS: BP 118/73
[2017-12-09 19:00] VITALS: BP 125/70
[2017-12-10] VITALS: BP 116/62
[2017-12-10] MEDS: HYDROmorphone 1 mg/ml syringe IV PRN ×5 (04:33→21:40)
[2017-12-10 06:02] LABS: ALANINE AMINOTRANSFERASE 30 U/L (12-78); ALBUMIN 2.4 G/DL (3.4-5.0); ALBUMIN/GLOBULIN RATIO 0.5 (1.1-1.5); ALKALINE PHOSPHATASE 139 IU/L (46-116); ANION GAP 9 (8-16); ASPARTATE AMINO TRANSFERASE 26 U/L (10-37); BILIRUBIN,TOTAL 0.2 MG/DL (0.1-1.0); BLOOD UREA NITROGEN 19 MG/DL (7-18); BUN/CREATININE RATIO 31.7 (6.6-38.0); CALCIUM 9.6 MG/DL (8.5-10.1); CHLORIDE 103 MMOL/L (99-107); GLUCOSE 110 MG/DL (70-104); MAGNESIUM 1.9 MG/DL (1.5-2.4); PHOSPHORUS 4.6 MG/DL (2.3-4.5); POTASSIUM 4.2 MMOL/L (3.5-5.1); PREALBUMIN 23.1 MG/DL (19-36); SODIUM 139 MMOL/L (135-145); TOTAL CARBON DIOXIDE 26.9 MMOL/L (24-32); TOTAL PROTEIN 7.3 G/DL (6.4-8.2); TRIGLYCERIDES 103 MG/DL (20-135); eGFR > 90 ML/MIN
[2017-12-10] MEDS: levoTHYROXINE 100mcg tablet PO SCH ×2 (07:00→10:19)
[2017-12-10 07:16] VITALS: BP 125/57
[2017-12-10] MEDS: K, MAG and/or Phos replacement - Verify level? MC SCH (08:00)
[2017-12-10] MEDS: LACTOSE-FREE FOOD (BOOST BREEZE) 237ML PO SCH ×3 (08:00→17:52)
[2017-12-10] MEDS: heparin, porcine 5000 units/ml vial SQ SCH ×2 (08:04→19:05)
[2017-12-10] MEDS: pantoprazole 40 MG vial IV SCH (08:04)
[2017-12-10] MEDS: ondansetron/PF 4mg/2ml inj IV PRN ×2 (08:05→19:04)
[2017-12-10] MEDS: fat emulsion IV 100 ML, MVI, adult No.4 with vit. K 5 ML, Trace element-5 inj. 0.5 ML i... IV SCH ×8 (08:18→17:43)
[2017-12-10] MEDS: simethicone 80mg chew tab PO PRN (08:43)
[2017-12-10 11:49] VITALS: BP 124/65
[2017-12-10 18:00] VITALS: BP 100/68
[2017-12-11] VITALS: BP 124/65
[2017-12-11] MEDS: HYDROmorphone 1 mg/ml syringe IV PRN ×6 (01:38→19:37)
[2017-12-11] MEDS: fat emulsion IV 100 ML, MVI, adult No.4 with vit. K 5 ML, Trace element-5 inj. 0.5 ML i... IV SCH ×12 (02:17→19:59)
[2017-12-11] MEDS: ondansetron/PF 4mg/2ml inj IV PRN ×2 (06:01→18:40)
[2017-12-11 07:00] VITALS: BP 115/60
[2017-12-11] MEDS: K, MAG and/or Phos replacement - Verify level? MC SCH (08:00)
[2017-12-11] MEDS: levoTHYROXINE 100mcg tablet PO SCH (08:04)
[2017-12-11] MEDS: pantoprazole 40 MG vial IV SCH (08:04)
[2017-12-11] MEDS: heparin, porcine 5000 units/ml vial SQ SCH ×2 (08:05→19:34)
[2017-12-11] MEDS: simethicone 80mg chew tab PO PRN (08:20)
[2017-12-11] MEDS: LORazepam 0.5 MG tablet PO PRN (10:50)
[2017-12-11 11:00] VITALS: BP 117/72
[2017-12-11 19:30] VITALS: BP 123/66
[2017-12-12] VITALS: BP 128/55
[2017-12-12] MEDS: HYDROmorphone 1 mg/ml syringe IV PRN ×5 (01:10→20:09)
[2017-12-12] MEDS: fat emulsion IV 100 ML, MVI, adult No.4 with vit. K 5 ML, Trace element-5 inj. 0.5 ML i... IV SCH ×12 (04:48→22:18)
[2017-12-12] MEDS: LORazepam 0.5 MG tablet PO PRN ×2 (05:48→20:08)
[2017-12-12 07:00] VITALS: BP 131/73
[2017-12-12] MEDS: K, MAG and/or Phos replacement - Verify level? MC SCH (08:00)
[2017-12-12] MEDS: ondansetron/PF 4mg/2ml inj IV PRN ×2 (08:53→16:05)
[2017-12-12] MEDS: heparin, porcine 5000 units/ml vial SQ SCH ×2 (08:54→20:07)
[2017-12-12] MEDS: levoTHYROXINE 75mcg tablet PO SCH (08:54)
[2017-12-12] MEDS: pantoprazole 40 MG vial IV SCH (08:55)
[2017-12-12 09:50] VITALS: BP 188/88
[2017-12-12 19:00] VITALS: BP 118/55
[2017-12-13] MEDS: HYDROmorphone 1 mg/ml syringe IV PRN ×6 (00:59→22:58)
[2017-12-13] MEDS: ondansetron/PF 4mg/2ml inj IV PRN ×3 (01:08→13:20)
[2017-12-13] MEDS: LORazepam 0.5 MG tablet PO PRN (06:53)
[2017-12-13 07:00] VITALS: BP 124/69
[2017-12-13] MEDS: pantoprazole 40 MG vial IV SCH (07:25)
[2017-12-13] MEDS: fat emulsion IV 100 ML, MVI, adult No.4 with vit. K 5 ML, Trace element-5 inj. 0.5 ML i... IV SCH ×8 (07:25→16:01)
[2017-12-13] MEDS: heparin, porcine 5000 units/ml vial SQ SCH ×2 (07:25→19:59)
[2017-12-13] MEDS: levoTHYROXINE 75mcg tablet PO SCH (07:26)
[2017-12-13] MEDS: K, MAG and/or Phos replacement - Verify level? MC SCH (07:37)
[2017-12-13 12:16] VITALS: BP 129/70
[2017-12-13 19:00] VITALS: BP 124/72
[2017-12-13] MEDS: ondansetron 4mg rapidly disintigrating tab PO PRN (19:58)
[2017-12-14] VITALS: BP 115/54
[2017-12-14] MEDS: fat emulsion IV 100 ML, MVI, adult No.4 with vit. K 5 ML, Trace element-5 inj. 0.5 ML i... IV SCH ×8 (00:58→20:06)
[2017-12-14] MEDS: metoclopramide 5 mg/ml inj IV PRN ×2 (01:01→20:26)
[2017-12-14 07:00] VITALS: BP 119/53
[2017-12-14] MEDS: pantoprazole 40 MG vial IV SCH (07:58)
[2017-12-14] MEDS: heparin, porcine 5000 units/ml vial SQ SCH ×2 (07:59→20:07)
[2017-12-14] MEDS: levoTHYROXINE 75mcg tablet PO SCH (07:59)
[2017-12-14] MEDS: ondansetron/PF 4mg/2ml inj IV PRN ×2 (07:59→15:06)
[2017-12-14] MEDS: K, MAG and/or Phos replacement - Verify level? MC SCH (08:00)
[2017-12-14] MEDS: simethicone 80mg chew tab PO PRN (09:42)
[2017-12-14] MEDS: HYDROmorphone 1 mg/ml syringe IV PRN ×3 (09:43→18:03)
[2017-12-14 11:00] VITALS: BP 128/72
[2017-12-14 17:49] LABS: UREA NITROGEN 24HR,URINE 16.6 GM/24HR (7-20)
[2017-12-14 19:00] VITALS: BP 116/72
[2017-12-15] VITALS: BP 135/76
[2017-12-15] MEDS: HYDROmorphone 1 mg/ml syringe IV PRN ×3 (00:31→09:43)
[2017-12-15] MEDS: fat emulsion IV 100 ML, MVI, adult No.4 with vit. K 5 ML, Trace element-5 inj. 0.5 ML i... IV SCH ×12 (04:07→19:45)
[2017-12-15] MEDS: ondansetron/PF 4mg/2ml inj IV PRN (05:43)
[2017-12-15] MEDS: K, MAG and/or Phos replacement - Verify level? MC SCH (08:00)
[2017-12-15] MEDS: heparin, porcine 5000 units/ml vial SQ SCH ×2 (09:44→19:44)
[2017-12-15] MEDS: levoTHYROXINE 75mcg tablet PO SCH (09:44)
[2017-12-15] MEDS: pantoprazole 40 MG vial IV SCH (09:44)
[2017-12-15 11:15] LABS: ALANINE AMINOTRANSFERASE 48 U/L (12-78); ALBUMIN 2.7 G/DL (3.4-5.0); ALBUMIN/GLOBULIN RATIO 0.5 (1.1-1.5); ALKALINE PHOSPHATASE 158 IU/L (46-116); ANION GAP 11 (8-16); ASPARTATE AMINO TRANSFERASE 41 U/L (10-37); BILIRUBIN,TOTAL 0.2 MG/DL (0.1-1.0); BLOOD UREA NITROGEN 20 MG/DL (7-18); BUN/CREATININE RATIO 29.9 (6.6-38.0); CALCIUM 9.7 MG/DL (8.5-10.1); CHLORIDE 101 MMOL/L (99-107); CREATININE 0.67 MG/DL (0.40-0.90); GLUCOSE 115 MG/DL (70-104); MAGNESIUM 1.9 MG/DL (1.5-2.4); PHOSPHORUS 4.9 MG/DL (2.3-4.5); POTASSIUM 4.4 MMOL/L (3.5-5.1); PREALBUMIN 30.9 MG/DL (19-36); SODIUM 138 MMOL/L (135-145); TOTAL CARBON DIOXIDE 25.9 MMOL/L (24-32); TRIGLYCERIDES 126 MG/DL (20-135); eGFR > 90 ML/MIN
[2017-12-15] MEDS: ondansetron 4mg rapidly disintigrating tab PO PRN ×2 (12:54→19:43)
[2017-12-15 20:00] VITALS: BP 129/68
[2017-12-16] VITALS: BP 114/58
[2017-12-16] MEDS: ondansetron 4mg rapidly disintigrating tab PO PRN ×4 (02:55→21:02)
[2017-12-16] MEDS: fat emulsion IV 100 ML, MVI, adult No.4 with vit. K 5 ML, Trace element-5 inj. 0.5 ML i... IV SCH ×8 (04:33→15:29)
[2017-12-16] MEDS: levoTHYROXINE 75mcg tablet PO SCH (07:33)
[2017-12-16] MEDS: pantoprazole 40 MG vial IV SCH (07:35)
[2017-12-16] MEDS: heparin, porcine 5000 units/ml vial SQ SCH ×2 (07:35→20:56)
[2017-12-16] MEDS: K, MAG and/or Phos replacement - Verify level? MC SCH (07:58)
[2017-12-16 08:37] VITALS: BP 122/64
[2017-12-16 11:40] VITALS: BP 111/62
[2017-12-16] MEDS: Dextrose 10%-water IV solution 1,000 ML IV PRN (14:04)
[2017-12-16 18:00] VITALS: BP 116/59
[2017-12-17] VITALS: BP 115/63
[2017-12-17] MEDS: fat emulsion IV 100 ML, MVI, adult No.4 with vit. K 5 ML, Trace element-5 inj. 0.5 ML i... IV SCH ×16 (00:49→19:24)
[2017-12-17] MEDS: ondansetron 4mg rapidly disintigrating tab PO PRN (03:30)
[2017-12-17 05:23] LABS: MAGNESIUM 1.8 MG/DL (1.5-2.4); PREALBUMIN 32.8 MG/DL (19-36)
[2017-12-17] MEDS: levoTHYROXINE 75mcg tablet PO SCH (06:49)
[2017-12-17 07:00] VITALS: BP 125/67
[2017-12-17] MEDS: K, MAG and/or Phos replacement - Verify level? MC SCH (08:00)
[2017-12-17] MEDS: heparin, porcine 5000 units/ml vial SQ SCH ×2 (09:25→19:24)
[2017-12-17] MEDS: pantoprazole 40 MG vial IV SCH (09:26)
[2017-12-17] MEDS: ondansetron/PF 4mg/2ml inj IV PRN ×3 (09:29→22:05)
[2017-12-17 11:32] VITALS: BP 118/67
[2017-12-17] MEDS: Dextrose 10%-water IV solution 1,000 ML IV PRN (18:22)
[2017-12-17 18:30] VITALS: BP 119/69
[2017-12-17 20:32] LABS: BASOPHILS # (AUTO) 0.1 X10'3 (0-0.2); BASOPHILS % (AUTO) 0.9 % (0-1); EOSINOPHILS # (AUTO) 0.3 X10'3 (0-0.9); EOSINOPHILS % (AUTO) 3.4 % (0-6); HEMATOCRIT 32.3 % (35.0-45.0); HEMOGLOBIN 10.8 g/dl (12.0-16.0); LYMPHOCYTES # (AUTO) 2.2 X10'3 (1.1-4.8); LYMPHOCYTES % (AUTO) 24.4 % (21-51); MEAN CORPUSCULAR HGB CONC 33.4 % (33.0-36.5); MEAN CORPUSCULAR VOLUME 77.8 FL (78-98); MEAN PLATELET VOLUME 7.9 FL (7.4-10.4); MONOCYTES # (AUTO) 0.5 X10'3 (0-0.9); NEUTROPHILS # (AUTO) 6.1 X10'3 (1.8-7.7); NEUTROPHILS % (AUTO) 66.3 % (42-75); PLATELET COUNT 466 X10'3 (140-440); RED BLOOD COUNT 4.14 X10'6 (4.20-5.60); RED CELL DISTRIBUTION WIDTH 16.7 % (11.5-14.5); WHITE BLOOD COUNT 9.2 X10'3 (4.5-11.0)
[2017-12-17 20:48] LABS: ALANINE AMINOTRANSFERASE 50 U/L (12-78); ALBUMIN 2.7 G/DL (3.4-5.0); ALBUMIN/GLOBULIN RATIO 0.5 (1.1-1.5); ALKALINE PHOSPHATASE 155 IU/L (46-116); ANION GAP 9 (8-16); ASPARTATE AMINO TRANSFERASE 36 U/L (10-37); BILIRUBIN,TOTAL 0.2 MG/DL (0.1-1.0); BLOOD UREA NITROGEN 21 MG/DL (7-18); BUN/CREATININE RATIO 26.9 (6.6-38.0); C-REACTIVE PROTEIN 0.56 MG/DL (0.0-0.5); CALCIUM 9.3 MG/DL (8.5-10.1); CHLORIDE 100 MMOL/L (99-107); CREATININE 0.78 MG/DL (0.40-0.90); GLUCOSE 112 MG/DL (70-104); LIPASE 213 U/L (73-393); MAGNESIUM 1.8 MG/DL (1.5-2.4); PHOSPHORUS 4.8 MG/DL (2.3-4.5); POTASSIUM 3.8 MMOL/L (3.5-5.1); SODIUM 139 MMOL/L (135-145); TOTAL CARBON DIOXIDE 30.1 MMOL/L (24-32); TOTAL PROTEIN 7.7 G/DL (6.4-8.2); eGFR 80 ML/MIN
[2017-12-18] VITALS: BP 123/66
[2017-12-18] MEDS: fat emulsion IV 100 ML, MVI, adult No.4 with vit. K 5 ML, Trace element-5 inj. 0.5 ML i... IV SCH ×12 (04:49→23:22)
[2017-12-18] MEDS: ondansetron/PF 4mg/2ml inj IV PRN ×4 (04:55→23:36)
[2017-12-18] MEDS: levoTHYROXINE 75mcg tablet PO SCH (07:36)
[2017-12-18] MEDS: pantoprazole 40 MG vial IV SCH (07:36)
[2017-12-18] MEDS: heparin, porcine 5000 units/ml vial SQ SCH ×2 (07:37→19:31)
[2017-12-18] MEDS: K, MAG and/or Phos replacement - Verify level? MC SCH (07:45)
[2017-12-18 08:24] VITALS: BP 140/69
[2017-12-18 11:00] VITALS: BP 134/58
[2017-12-18 18:00] VITALS: BP 123/70
[2017-12-19] VITALS: BP 109/60
[2017-12-19 08:00] VITALS: BP 115/64
[2017-12-19] MEDS: K, MAG and/or Phos replacement - Verify level? MC SCH (08:00)
[2017-12-19] MEDS: fat emulsion IV 100 ML, MVI, adult No.4 with vit. K 5 ML, Trace element-5 inj. 0.5 ML i... IV SCH ×8 (08:04→16:27)
[2017-12-19] MEDS: pantoprazole 40 MG vial IV SCH (08:11)
[2017-12-19] MEDS: heparin, porcine 5000 units/ml vial SQ SCH ×2 (08:12→20:03)
[2017-12-19] MEDS: levoTHYROXINE 75mcg tablet PO SCH (08:13)
[2017-12-19] MEDS: ondansetron/PF 4mg/2ml inj IV PRN ×2 (08:17→15:48)
[2017-12-19 12:00] VITALS: BP 133/68
[2017-12-19] MEDS ORDERED: fat emulsion IV 100 ML, MVI, adult No.4 with vit. K 5 ML, Trace element-5 inj. 0.5 ML i... IV SCH ×4 (12:20)
[2017-12-19 20:00] VITALS: BP 112/59
[2017-12-20] MEDS ORDERED: fat emulsion IV 100 ML, MVI, adult No.4 with vit. K 5 ML, Trace element-5 inj. 0.5 ML i... IV SCH ×4 (01:00)
[2017-12-20] MEDS: fat emulsion IV 100 ML, MVI, adult No.4 with vit. K 5 ML, Trace element-5 inj. 0.5 ML i... IV SCH ×8 (01:23→17:42)
[2017-12-20] MEDS: ondansetron/PF 4mg/2ml inj IV PRN ×3 (05:17→17:40)
[2017-12-20 08:00] VITALS: BP 109/55
[2017-12-20] MEDS: K, MAG and/or Phos replacement - Verify level? MC SCH (08:00)
[2017-12-20] MEDS: levoTHYROXINE 75mcg tablet PO SCH (09:54)
[2017-12-20] MEDS: pantoprazole 40 MG vial IV SCH (09:54)
[2017-12-20] MEDS: heparin, porcine 5000 units/ml vial SQ SCH ×2 (09:55→19:29)
[2017-12-20 11:00] VITALS: BP 117/62
[2017-12-20 20:00] VITALS: BP 122/70
[2017-12-21] VITALS: BP 116/63
[2017-12-21] MEDS: ondansetron/PF 4mg/2ml inj IV PRN ×3 (02:29→16:32)
[2017-12-21 03:16] LABS: UREA NITROGEN 24HR,URINE 14.4 GM/24HR (7-20)
[2017-12-21 07:00] VITALS: BP 113/62
[2017-12-21] MEDS: levoTHYROXINE 75mcg tablet PO SCH (07:21)
[2017-12-21] MEDS: heparin, porcine 5000 units/ml vial SQ SCH ×2 (07:22→19:19)
[2017-12-21] MEDS: pantoprazole 40 MG vial IV SCH (07:22)
[2017-12-21] MEDS: fat emulsion IV 100 ML, MVI, adult No.4 with vit. K 5 ML, Trace element-5 inj. 0.5 ML i... IV SCH ×4 (09:41)
[2017-12-21 09:46] LABS: BASOPHILS # (AUTO) 0.2 X10'3 (0-0.2); BASOPHILS % (AUTO) 2.2 % (0-1); EOSINOPHILS # (AUTO) 0.2 X10'3 (0-0.9); EOSINOPHILS % (AUTO) 2.3 % (0-6); HEMATOCRIT 28.9 % (35.0-45.0); HEMOGLOBIN 9.6 g/dl (12.0-16.0); LYMPHOCYTES # (AUTO) 1.7 X10'3 (1.1-4.8); LYMPHOCYTES % (AUTO) 21.3 % (21-51); MEAN CORPUSCULAR HGB CONC 33.4 % (33.0-36.5); MEAN CORPUSCULAR VOLUME 77.9 FL (78-98); MEAN PLATELET VOLUME 7.7 FL (7.4-10.4); MONOCYTES # (AUTO) 0.6 X10'3 (0-0.9); MONOCYTES % (AUTO) 7.6 % (2-12); NEUTROPHILS # (AUTO) 5.4 X10'3 (1.8-7.7); NEUTROPHILS % (AUTO) 66.6 % (42-75); PLATELET COUNT 358 X10'3 (140-440); RED BLOOD COUNT 3.71 X10'6 (4.20-5.60); RED CELL DISTRIBUTION WIDTH 16.6 % (11.5-14.5); WHITE BLOOD COUNT 8.1 X10'3 (4.5-11.0)
[2017-12-21 10:03] LABS: ALANINE AMINOTRANSFERASE 43 U/L (12-78); ALBUMIN 2.6 G/DL (3.4-5.0); ALBUMIN/GLOBULIN RATIO 0.6 (1.1-1.5); ALKALINE PHOSPHATASE 140 IU/L (46-116); ANION GAP 8 (8-16); ASPARTATE AMINO TRANSFERASE 33 U/L (10-37); BILIRUBIN,TOTAL 0.2 MG/DL (0.1-1.0); BLOOD UREA NITROGEN 24 MG/DL (7-18); BUN/CREATININE RATIO 33.8 (6.6-38.0); CALCIUM 8.9 MG/DL (8.5-10.1); CHLORIDE 103 MMOL/L (99-107); CREATININE 0.71 MG/DL (0.40-0.90); GLUCOSE 99 MG/DL (70-104); MAGNESIUM 1.8 MG/DL (1.5-2.4); POTASSIUM 4.4 MMOL/L (3.5-5.1); SODIUM 138 MMOL/L (135-145); TOTAL CARBON DIOXIDE 27.2 MMOL/L (24-32); TOTAL PROTEIN 7.2 G/DL (6.4-8.2); TRIGLYCERIDES 111 MG/DL (20-135); eGFR 89 ML/MIN
[2017-12-21 11:00] VITALS: BP 119/64
[2017-12-21 20:00] VITALS: BP 114/61
[2017-12-21 23:36] VITALS: BP 111/62
[2017-12-22] MEDS: ondansetron/PF 4mg/2ml inj IV PRN ×4 (01:20→19:46)
[2017-12-22] MEDS: fat emulsion IV 100 ML, MVI, adult No.4 with vit. K 5 ML, Trace element-5 inj. 0.5 ML i... IV SCH ×8 (02:22→19:47)
[2017-12-22 03:44] LABS: % IRON SATURATION 7 % (11-46); IRON 20 UG/DL (49-151); TOTAL IRON BINDING CAPACITY 277 UG/DL (259-388)
[2017-12-22 07:00] VITALS: BP 134/67
[2017-12-22] MEDS: levoTHYROXINE 75mcg tablet PO SCH (07:29)
[2017-12-22] MEDS: pantoprazole 40 MG vial IV SCH (07:30)
[2017-12-22] MEDS: heparin, porcine 5000 units/ml vial SQ SCH ×2 (07:37→19:46)
[2017-12-22 12:00] VITALS: BP 115/64
[2017-12-22 20:00] VITALS: BP 120/57
[2017-12-23] VITALS: BP 110/65
[2017-12-23] MEDS: ondansetron/PF 4mg/2ml inj IV PRN ×3 (04:36→17:30)
[2017-12-23] MEDS: levoTHYROXINE 75mcg tablet PO SCH (09:31)
[2017-12-23] MEDS: pantoprazole 40 MG vial IV SCH (09:32)
[2017-12-23] MEDS: heparin, porcine 5000 units/ml vial SQ SCH ×2 (09:34→19:07)
[2017-12-23] MEDS: fat emulsion IV 100 ML, MVI, adult No.4 with vit. K 5 ML, Trace element-5 inj. 0.5 ML i... IV SCH ×4 (10:49)
[2017-12-23 18:00] VITALS: BP 122/62
[2017-12-23] MEDS: mag hydrox/Alum hydrox/simeth 30ml oral suspension PO SCH (21:15)
[2017-12-24] VITALS: BP 123/60
[2017-12-24] MEDS: ondansetron/PF 4mg/2ml inj IV PRN ×3 (05:14→20:32)
[2017-12-24] MEDS: fat emulsion IV 100 ML, MVI, adult No.4 with vit. K 5 ML, Trace element-5 inj. 0.5 ML i... IV SCH ×4 (05:20)
[2017-12-24 06:37] LABS: ALBUMIN 2.5 G/DL (3.4-5.0); ANION GAP 7 (8-16); BLOOD UREA NITROGEN 20 MG/DL (7-18); BUN/CREATININE RATIO 32.8 (6.6-38.0); CALCIUM 8.9 MG/DL (8.5-10.1); CHLORIDE 104 MMOL/L (99-107); CREATININE 0.61 MG/DL (0.40-0.90); GLUCOSE 107 MG/DL (70-104); MAGNESIUM 1.8 MG/DL (1.5-2.4); POTASSIUM 4.1 MMOL/L (3.5-5.1); SODIUM 140 MMOL/L (135-145); TOTAL CARBON DIOXIDE 28.6 MMOL/L (24-32); TRIGLYCERIDES 128 MG/DL (20-135); eGFR > 90 ML/MIN
[2017-12-24 08:00] VITALS: BP 111/55
[2017-12-24] MEDS: mag hydrox/Alum hydrox/simeth 30ml oral suspension PO SCH ×3 (08:00→20:34)
[2017-12-24] MEDS: levoTHYROXINE 75mcg tablet PO SCH (08:47)
[2017-12-24] MEDS: pantoprazole 40 MG vial IV SCH (08:47)
[2017-12-24] MEDS: heparin, porcine 5000 units/ml vial SQ SCH ×2 (08:48→20:34)
[2017-12-24 11:00] VITALS: BP_SYST 124; BP_SYST 127; BP_SYST 142; BP_DIAS 51; BP_DIAS 75; BP_DIAS 77
[2017-12-24] MEDS: Protein Shake (high protein) 240ml (8oz) cup PO SCH ×2 (13:00→18:17)
[2017-12-24 20:00] VITALS: BP_SYST 105; BP_SYST 119; BP_SYST 122; BP_SYST 132; BP_DIAS 51; BP_DIAS 64; BP_DIAS 72; BP_DIAS 74
[2017-12-25] VITALS: BP 100/55
[2017-12-25] MEDS: simethicone 80mg chew tab PO PRN ×2 (01:11→10:24)
[2017-12-25] MEDS: fat emulsion IV 100 ML, MVI, adult No.4 with vit. K 5 ML, Trace element-5 inj. 0.5 ML i... IV SCH ×4 (03:34)
[2017-12-25 05:15] LABS: ALBUMIN 2.5 G/DL (3.4-5.0); ANION GAP 6 (8-16); BLOOD UREA NITROGEN 19 MG/DL (7-18); BUN/CREATININE RATIO 28.8 (6.6-38.0); CALCIUM 9.1 MG/DL (8.5-10.1); CHLORIDE 104 MMOL/L (99-107); CREATININE 0.66 MG/DL (0.40-0.90); GLUCOSE 110 MG/DL (70-104); SODIUM 139 MMOL/L (135-145); TOTAL CARBON DIOXIDE 29.1 MMOL/L (24-32); eGFR > 90 ML/MIN
[2017-12-25] MEDS: ondansetron/PF 4mg/2ml inj IV PRN ×3 (05:36→19:01)
[2017-12-25 07:00] VITALS: BP 120/59
[2017-12-25] MEDS: mag hydrox/Alum hydrox/simeth 30ml oral suspension PO SCH ×3 (07:17→18:56)
[2017-12-25] MEDS: levoTHYROXINE 75mcg tablet PO SCH (07:18)
[2017-12-25] MEDS: pantoprazole 40 MG vial IV SCH (07:19)
[2017-12-25] MEDS: heparin, porcine 5000 units/ml vial SQ SCH ×2 (07:24→20:38)
[2017-12-25] MEDS: Protein Shake (high protein) 240ml (8oz) cup PO SCH ×3 (08:13→18:02)
[2017-12-25 11:19] VITALS: BP 125/67
[2017-12-25 11:22] VITALS: BP_SYST 125; BP_SYST 144; BP_SYST 146; BP_DIAS 67; BP_DIAS 72; BP_DIAS 83
[2017-12-25 19:00] VITALS: BP_SYST 107; BP_SYST 109; BP_SYST 110; BP_DIAS 54; BP_DIAS 59; BP_DIAS 60
[2017-12-26] VITALS: BP 110/56
[2017-12-26] MEDS: fat emulsion IV 100 ML, MVI, adult No.4 with vit. K 5 ML, Trace element-5 inj. 0.5 ML i... IV SCH ×8 (00:55→22:29)
[2017-12-26] MEDS: ondansetron/PF 4mg/2ml inj IV PRN ×3 (05:44→17:59)
[2017-12-26 07:07] VITALS: BP 118/70
[2017-12-26] MEDS: simethicone 80mg chew tab PO PRN (07:49)
[2017-12-26] MEDS: levoTHYROXINE 75mcg tablet PO SCH (07:50)
[2017-12-26] MEDS: heparin, porcine 5000 units/ml vial SQ SCH ×2 (07:52→20:27)
[2017-12-26] MEDS: Protein Shake (high protein) 240ml (8oz) cup PO SCH ×3 (07:55→18:03)
[2017-12-26] MEDS: pantoprazole 40 MG vial IV SCH (07:55)
[2017-12-26] MEDS: mag hydrox/Alum hydrox/simeth 30ml oral suspension PO SCH ×3 (07:58→20:28)
[2017-12-26 11:00] VITALS: BP 132/60
[2017-12-26 19:21] VITALS: BP 127/63
[2017-12-26 20:00] VITALS: BP_SYST 103; BP_SYST 108; BP_SYST 110; BP_DIAS 50; BP_DIAS 59; BP_DIAS 70
[2017-12-27] VITALS: BP 102/50
[2017-12-27 08:00] VITALS: BP_SYST 102; BP_SYST 108; BP_SYST 111; BP_SYST 122; BP_DIAS 49; BP_DIAS 55; BP_DIAS 66
[2017-12-27] MEDS: mag hydrox/Alum hydrox/simeth 30ml oral suspension PO SCH ×3 (08:00→19:36)
[2017-12-27] MEDS: levoTHYROXINE 75mcg tablet PO SCH (08:04)
[2017-12-27] MEDS: ondansetron/PF 4mg/2ml inj IV PRN ×3 (08:07→20:05)
[2017-12-27] MEDS: pantoprazole 40 MG vial IV SCH (08:09)
[2017-12-27] MEDS: heparin, porcine 5000 units/ml vial SQ SCH ×2 (08:11→19:36)
[2017-12-27] MEDS: Protein Shake (high protein) 240ml (8oz) cup PO SCH ×3 (08:11→18:00)
[2017-12-27] MEDS: simethicone 80mg chew tab PO PRN ×2 (10:58→19:50)
[2017-12-27] MEDS: calcium carbonate 500mg chew tablet PO PRN (10:58)
[2017-12-27 14:06] LABS: BASOPHILS # (AUTO) 0.1 X10'3 (0-0.2); BASOPHILS % (AUTO) 0.7 % (0-1); EOSINOPHILS # (AUTO) 0.3 X10'3 (0-0.9); EOSINOPHILS % (AUTO) 3.5 % (0-6); HEMATOCRIT 29.6 % (35.0-45.0); HEMOGLOBIN 9.8 g/dl (12.0-16.0); LYMPHOCYTES # (AUTO) 2.3 X10'3 (1.1-4.8); LYMPHOCYTES % (AUTO) 24.1 % (21-51); MEAN CORPUSCULAR HEMOGLOBIN 25.5 PG (27.0-31.0); MEAN CORPUSCULAR HGB CONC 32.9 % (33.0-36.5); MEAN CORPUSCULAR VOLUME 77.5 FL (78-98); MEAN PLATELET VOLUME 7.7 FL (7.4-10.4); MONOCYTES # (AUTO) 0.7 X10'3 (0-0.9); MONOCYTES % (AUTO) 7.2 % (2-12); NEUTROPHILS # (AUTO) 6.2 X10'3 (1.8-7.7); NEUTROPHILS % (AUTO) 64.5 % (42-75); PLATELET COUNT 420 X10'3 (140-440); RED BLOOD COUNT 3.82 X10'6 (4.20-5.60); RED CELL DISTRIBUTION WIDTH 16.2 % (11.5-14.5); WHITE BLOOD COUNT 9.7 X10'3 (4.5-11.0)
[2017-12-27 14:16] LABS: ALBUMIN 2.6 G/DL (3.4-5.0); ANION GAP 10 (8-16); BLOOD UREA NITROGEN 19 MG/DL (7-18); BUN/CREATININE RATIO 24.7 (6.6-38.0); CALCIUM 9.3 MG/DL (8.5-10.1); CHLORIDE 103 MMOL/L (99-107); CREATININE 0.77 MG/DL (0.40-0.90); GLUCOSE 70 MG/DL (70-104); POTASSIUM 3.8 MMOL/L (3.5-5.1); SODIUM 139 MMOL/L (135-145); TOTAL CARBON DIOXIDE 25.6 MMOL/L (24-32); eGFR 81 ML/MIN
[2017-12-27 15:08] VITALS: BP 110/68
[2017-12-27 19:00] VITALS: BP 105/40
[2017-12-27 20:00] VITALS: BP 105/40
[2017-12-27] MEDS: fat emulsion IV 100 ML, MVI, adult No.4 with vit. K 5 ML, Trace element-5 inj. 0.5 ML i... IV SCH ×4 (22:22)
[2017-12-28] VITALS: BP 115/52
[2017-12-28] MEDS: ondansetron/PF 4mg/2ml inj IV PRN ×3 (04:40→16:55)
[2017-12-28 05:49] LABS: ALBUMIN 2.4 G/DL (3.4-5.0); ANION GAP 8 (8-16); BLOOD UREA NITROGEN 18 MG/DL (7-18); BUN/CREATININE RATIO 28.1 (6.6-38.0); CALCIUM 8.9 MG/DL (8.5-10.1); CHLORIDE 104 MMOL/L (99-107); CREATININE 0.64 MG/DL (0.40-0.90); GLUCOSE 113 MG/DL (70-104); MAGNESIUM 1.9 MG/DL (1.5-2.4); POTASSIUM 3.8 MMOL/L (3.5-5.1); SODIUM 140 MMOL/L (135-145); TOTAL CARBON DIOXIDE 28.4 MMOL/L (24-32); TRIGLYCERIDES 232 MG/DL (20-135); eGFR > 90 ML/MIN
[2017-12-28 06:06] LABS: UREA NITROGEN 24HR,URINE 14.5 GM/24HR (7-20)
[2017-12-28 06:34] VITALS: BP 112/56
[2017-12-28] MEDS: mag hydrox/Alum hydrox/simeth 30ml oral suspension PO SCH ×3 (07:00→20:42)
[2017-12-28] MEDS: pantoprazole 40 MG vial IV SCH (07:04)
[2017-12-28] MEDS: levoTHYROXINE 75mcg tablet PO SCH (07:04)
[2017-12-28] MEDS: heparin, porcine 5000 units/ml vial SQ SCH ×2 (07:04→20:43)
[2017-12-28] MEDS: Protein Shake (high protein) 240ml (8oz) cup PO SCH ×3 (08:00→20:39)
[2017-12-28 11:44] VITALS: BP 124/66
[2017-12-28] MEDS ORDERED: metoclopramide 10mg tablet PO PRN (16:30)
[2017-12-28 19:00] VITALS: BP 109/55
[2017-12-28] MEDS: fat emulsion IV 100 ML, MVI, adult No.4 with vit. K 5 ML, Trace element-5 inj. 0.5 ML i... IV SCH ×4 (22:30)
[2017-12-28] MEDS: ondansetron 4mg rapidly disintigrating tab PO PRN (22:54)
[2017-12-28 23:56] VITALS: BP 110/49
[2017-12-29] MEDS: calcium carbonate 500mg chew tablet PO PRN (01:05)
[2017-12-29] MEDS: ondansetron 4mg rapidly disintigrating tab PO PRN ×3 (06:00→18:44)
[2017-12-29 07:02] VITALS: BP 127/52
[2017-12-29] MEDS: pantoprazole 40 MG vial IV SCH (07:37)
[2017-12-29] MEDS: mag hydrox/Alum hydrox/simeth 30ml oral suspension PO SCH ×2 (07:37→12:15)
[2017-12-29] MEDS: levoTHYROXINE 75mcg tablet PO SCH (07:37)
[2017-12-29] MEDS: heparin, porcine 5000 units/ml vial SQ SCH ×2 (07:38→20:04)
[2017-12-29] MEDS: Protein Shake (high protein) 240ml (8oz) cup PO SCH ×3 (07:39→18:05)
[2017-12-29 11:03] VITALS: BP 112/64
[2017-12-29] MEDS ORDERED: METO10TA3 PO (12:20)
[2017-12-29] MEDS ORDERED: HYDR15SO7 PO (12:20)
[2017-12-29] MEDS ORDERED: CALC300T4 PO (12:20)
[2017-12-29] MEDS ORDERED: LEVO75TA7 PO (12:20)
[2017-12-29] MEDS: simethicone 80mg chew tab PO PRN (14:35)
[2017-12-29 19:14] VITALS: BP 106/52
== END 2017-12-29 21:18 | disposition home IV services (08) | DRG 393 ==
LOC: SUR 3N 23:48
PROVIDERS: ADMIT Family Medicine; ATTEND Internal Medicine
PROC: 3E0336Z Introduction of Nutritional Substance into Peripheral Vein, Percutaneous Approach (ICD-10-PCS; 2017-11-19)
PROC: 02HV33Z Insertion of Infusion Device into Superior Vena Cava, Percutaneous Approach (ICD-10-PCS; principal; 2017-11-26)
PROC: 02HV33Z Insertion of Infusion Device into Superior Vena Cava, Percutaneous Approach (ICD-10-PCS; 2017-11-26)
PROC: B548ZZA Ultrasonography of Superior Vena Cava, Guidance (ICD-10-PCS; 2017-12-24)
PROC: B548ZZA Ultrasonography of Superior Vena Cava, Guidance (ICD-10-PCS; 2017-12-24)
DX: K91.89 Other postprocedural complications and disorders of digestive system (principal); K65.0 Generalized (acute) peritonitis; A40.9 Streptococcal sepsis, unspecified; E87.1 Hypo-osmolality and hyponatremia; Z68.41 Body mass index [BMI] 40.0-44.9, adult; E66.01 Morbid (severe) obesity due to excess calories; E03.9 Hypothyroidism, unspecified; D64.9 Anemia, unspecified; Y83.8 Other surgical procedures as the cause of abnormal reaction of the patient, or of later complication, without mention of misadventure at the time of the procedure; R73.9 Hyperglycemia, unspecified; Z79.899 Other long term (current) drug therapy; Y92.89 Other specified places as the place of occurrence of the external cause
CPT/HCPCS: 36415; 36569; 71045; 74177; 74220; 76937; 80048; 80053; 82533; 82948; 83036; 83540; 83550; 83605; 83690; 83735; 84100; 84134; 84145; 84443; 84478; 84560; 85025; 85651; 86140; 87070; A4333; A6212; A6253; A6255; A6258; A6402; C9113; J0780; J1170; J1644; J1885; J2020; J2185; J2405; J2543; J2765; J2997; J7030; J7131; Q9963; Q9967

== ENCOUNTER 2018-04-28 12:30 | Outpatient (CLI) | payer BC, MEDICAID ==
[~2018-04-28] VITALS: Ht 162.6 cm; Wt 109.3 kg
[~2018-04-28 12:30] MED LIST changes: +CALC300T4 PO; +HYDR15SO7 PO; -LEVO125T PO; +LEVO75TA7 PO; +METO10TA3 PO
[2018-04-28] MEDS ORDERED: albuterol 2.5 MG/3 ML nebule NEB PRN (13:10)
== END 2018-04-28 23:59 | disposition home or self-care (01) ==
LOC: RT 12:30
PROVIDERS: ATTEND Family Medicine
DX: R91.8 Other nonspecific abnormal finding of lung field (principal); R06.02 Shortness of breath; F17.210 Nicotine dependence, cigarettes, uncomplicated; Z79.899 Other long term (current) drug therapy; Z98.84 Bariatric surgery status
CPT/HCPCS: 94060; 94727; 94729; 94760